=== PATIENT | female | born 1980 | race Caucasian/White ===

== ENCOUNTER 2022-08-13 13:15 | Emergency (ER) | payer OTHER, SELFPAY ==
[2022-08-13 13:20] VITALS: BP 117/95; PULSE 103; RESP 18; TEMP 36.2; O2SAT 95
--- NOTE | 2022-08-13 13:52 | ED.PSYCH ---
HPI - Psych General Chief Complaint: Psychiatric Symptoms Stated Complaint: hallucinations/anxiety Time Seen by Provider: 08/13/22 13:25 History of Present Illness HPI Narrative: Pt presents to the ED with her mother because she has been hearing voices and is paranoid thinking someone is trying to get her. Pt states the voices are not telling her to harm herself or anyone else. Pt says she's been hearing the voices for 4 days. Mother states she went to get her from her place in [place] to get her home where she would feel safer. Pt forgot her ambien and can't get it in [place] because it was sent to pharm in [place]. Pt has been on zyprexa in the past and both she and mother are comfortable with her going home with RX for zyprexa 5 mg and ambien. They will return if her condition changes. Related Data Home Medications Medication Instructions Recorded Confirmed alprazolam 2 mg tablet 2 mg PO TID PRN Anxiety 08/13/22 08/13/22 venlafaxine 150 mg 300 mg PO DAILY 08/13/22 08/13/22 capsule,extended release 24 hr zolpidem 5 mg tablet 10 mg PO HS PRN Insomnia 08/13/22 08/13/22 Allergies Allergy/AdvReac Type Severity Reaction Status Date / Time No Known Allergies Allergy Verified 08/13/22 13:39 Review of Systems Review of Systems: All systems reviewed & are unremarkable except as noted in HPI and below Psychiatric: Psychiatric: Reports as per HPI, Reports anxiety, Denies homicidal ideation and Denies suicidal ideation PMFSH Social History Social History Substance use type: does not use Exam Const: General: healthy appearing Nutritional Appearance: well nourished Orientation/consciousness: patient oriented x3 Limitations: no limitations HENMT: Head: normal to inspection Eyes: Conjunctivae: conjunctivae normal EOM: EOMs intact bilaterally Neck: Neck: normal visual inspection, no lymphadenopathy and no meningeal signs Resp: Effort & Inspection: normal respiratory effort Auscultation: clear to auscultation bilaterally Cardio: Rate: regular rate Rhythm: regular rhythm GI: GI Palp: Yes Soft to palpation Auscultation: normal bowel sounds Skin: General skin exam: normal color Rashes: no rashes Neuro: General: patient oriented x3, moves all extremities, no meningeal signs, no focal motor deficits and CN's II-XI intact bilaterally Cranial nerves: Yes Nystagmus not present Speech: normal speech Extrem: General: normal to inspection, no clubbing, cyanosis or edema and no pedal edema Psych: Affect: normal affect Attitude: cooperative Other: pt understands the voices are not real Course Vital Signs Vital signs: Vital Signs Temperature 97.1 F L 08/13/22 13:20 Pulse Rate 103 H 08/13/22 13:20 Respiratory Rate 18 08/13/22 13:20 Blood Pressure 117/95 H 08/13/22 13:20 Pulse Oximetry 95 08/13/22 13:20 Oxygen Delivery Room Air 08/13/22 13:20 Temperature 97.1 F L 08/13/22 13:20 Pulse Rate 103 H 08/13/22 13:20 Respiratory Rate 18 08/13/22 13:20 Blood Pressure 117/95 H 08/13/22 13:20 Pulse Oximetry 95 08/13/22 13:20 Oxygen Delivery Room Air 08/13/22 13:20 Discharge Plan Discharge Clinical Impression: Psychosis Patient Disposition: Home, Self-Care Condition: Stable Instructions: Antibiotic Form, Psychotic Disorder (ED) Additional Instructions: return if any thoughts of self harm or harming others Prescriptions: New zolpidem 5 mg tablet 5 mg PO HS PRN (Reason: insomnia) Qty: 20 0RF olanzapine [Zyprexa] 5 mg tablet 5 mg PO HS Qty: 20 0RF No Action venlafaxine 150 mg Capsule,Extended Release 24hr 300 mg PO DAILY zolpidem 5 mg Tablet 10 mg PO HS PRN (Reason: Insomnia) alprazolam 2 mg Tablet 2 mg PO TID PRN (Reason: Anxiety) Follow-up/Referrals: UNKNOWN,DOCTOR [Primary Care Provider] -
== END 2022-08-13 14:10 | disposition home or self-care (01) ==
LOC: CHSED 14:14
PROVIDERS: Emergency Provider Emergency Medicine
DX: F29 Unspecified psychosis not due to a substance or known physiological condition (principal)
CPT/HCPCS: 99283

== ENCOUNTER 2023-06-16 15:59 | Emergency (ER) | payer OTHER, SELFPAY ==
[2023-06-16 16:12] VITALS: BP 123/84; PULSE 99; RESP 18; TEMP 36.3; O2SAT 100
--- NOTE | 2023-06-16 16:30 | ED.GENADULT ---
HPI - General Adult General Chief complaint: Psychiatric Symptoms Stated complaint: evaluation Time Seen by Provider: 06/16/23 16:14 History of Present Illness HPI narrative: 43-year-old female presenting for mental health concerns. Patient states she has been hearing voices in her apartment. she states these voices are telling her that they were going to kill her. She denies any thoughts of harming herself or others but states she has tried to harm herself in the past. Mom at bedside states she is having a psychotic breakdown and then she was referred to the emergency department by her psychiatrist. Patient denies any recent illnesses or trauma. He also denies any ingestion of any alcohol or illicit drugs. Related Data Home Medications Medication Instructions Recorded Confirmed alprazolam 2 mg tablet 2 mg PO TID PRN Anxiety 08/13/22 08/13/22 venlafaxine 150 mg 300 mg PO DAILY 08/13/22 08/13/22 capsule,extended release 24 hr zolpidem 5 mg tablet 10 mg PO HS PRN Insomnia 08/13/22 08/13/22 Allergies Allergy/AdvReac Type Severity Reaction Status Date / Time No Known Allergies Allergy Verified 08/13/22 13:39 [facility] Social History Social History Substance use type: does not use Exam Narrative: Patient alert and oriented. She is neurologically intact. She does appear to be anxious and tearful at times. She has fleeting thoughts and her conversation is in multiple directions. All of the systems otherwise unremarkable. Course Vital Signs Vital signs: Vital Signs Temperature 36.3 C L 06/16/23 16:12 Pulse Rate 99 06/16/23 16:12 Respiratory Rate 18 06/16/23 16:12 Blood Pressure 123/84 06/16/23 16:12 Pulse Oximetry 100 06/16/23 16:12 Oxygen Delivery Room Air 06/16/23 16:12 Temperature 36.6 C 06/16/23 22:25 Pulse Rate 84 06/16/23 22:25 Respiratory Rate 18 06/16/23 22:25 Blood Pressure 115/74 06/16/23 22:25 Pulse Oximetry 99 06/16/23 22:25 Oxygen Delivery Room Air 06/16/23 22:25 Medical Decision Making MDM Narrative Medical decision making narrative: Patient is cleared from a medical standpoint for a mental health evaluation, placement, and transport. She does appear to have urinary tract infection which we will start treatment on. patient was evaluated by mental health counselor. Patient given a safety contract and has a follow-up appointment scheduled with the mental health counselor resources tomorrow morning. Patient is comfortable with this plan. She is to be released into the care of her mom who is at bedside. I believe this is an appropriate plan for this patient. She never endorsed having suicidal or homicidal ideations. Vital Signs Vital Signs: Vital Signs Temperature 36.3 C L 06/16/23 16:12 Pulse Rate 99 06/16/23 16:12 Respiratory Rate 18 06/16/23 16:12 Blood Pressure 123/84 06/16/23 16:12 Pulse Oximetry 100 06/16/23 16:12 Oxygen Delivery Room Air 06/16/23 16:12 Temperature 36.6 C 06/16/23 22:25 Pulse Rate 84 06/16/23 22:25 Respiratory Rate 18 06/16/23 22:25 Blood Pressure 115/74 06/16/23 22:25 Pulse Oximetry 99 06/16/23 22:25 Oxygen Delivery Room Air 06/16/23 22:25 Lab Data Lab results reviewed: Yes I reviewed the patient's lab results. 06/16/23 16:45 06/16/23 16:45 Labs: Lab Results 06/16/23 06/16/23 Range/Units 16:29 16:45 WBC 6.9 (4.8-10.8) K/mm3 RBC 4.79 (4.20-5.40) M/mm3 Hgb 13.9 (12.0-15.0) g/dL Hct 46.0 (35.0-49.0) % MCV 96.0 (78.0-102.0) fL MCH 29.0 (27.0-31.0) pg MCHC 30.2 L (32.0-36.0) g/dL RDW 13.1 (11.6-14.4) % Plt Count 279 (150-420) K/mm3 MPV 10.3 (9.2-11.8) fl Immature Gran % (Auto) 0.1 H (0.0-0.0) % Neut % (Auto) 63.8 (50.0-70.0) % Lymph % (Auto) 25.1 (18.0-42.0) % [place] % (Auto) 8.1 (2.0-11.0) % Eos % (Auto) 1.9 (1.0-6.0) % Baso % (Auto) 1.0 (0.0-1.0) % Lymp
[2023-06-16 16:53] LABS: Basophils Absolute Auto 0.07 K/mm3 (0.00-0.10); Eosinophils Absolute Auto 0.13 K/mm3 (0.02-0.50); Eosinophils Percent Auto 1.9 % (1.0-6.0); Hemoglobin 13.9 g/dL (12.0-15.0); Immature Granulocyte Absolute 0.01 K/mm3 (0.00-0.00); Immature Granulocyte Percent A 0.1 % (0.0-0.0); Lymphocytes Absolute Auto 1.73 K/mm3 (1.10-4.50); Lymphocytes Percent Auto 25.1 % (18.0-42.0); Mean Corpuscular HGB Conc 30.2 g/dL (32.0-36.0); Mean Platelet Volume 10.3 fl (9.2-11.8); Monocytes Absolute Auto 0.56 K/mm3 (0.10-0.90); Monocytes Percent Auto 8.1 % (2.0-11.0); Neutrophils Absolute Auto 4.4 K/mm3 (1.7-7.2); Neutrophils Percent Auto 63.8 % (50.0-70.0); Platelet Count Result 279 K/mm3 (150-420); Red Blood Count 4.79 M/mm3 (4.20-5.40); Red Cell Distribution Width 13.1 % (11.6-14.4); White Blood Count 6.9 K/mm3 (4.8-10.8)
[2023-06-16 16:57] LABS: Appearance Urine Cloudy (Clear); Bilirubin Urine Negative (Negative); Blood Urine 2+ (Negative); Color Urine Light Yellow (Yellow); Glucose Urine UA Negative (Negative); Ketones Urine Trace (Negative); Leukocyte Esterase Ur 1+ LEU/UL (Negative); Nitrate Urine Negative (Negative); Protein Urine Negative (Negative); Specific Grav Ur <= 1.005 (1.010-1.020); Urobilinogen Urine 0.2 mg/dL (0.2-1.0)
[2023-06-16 17:02] LABS: Add Urine Microscopic? YES; Bacteria Urine 2+ /hpf; Squamous Epithelial Cell Urine Moderate /hpf (Few)
[2023-06-16 17:06] LABS: Amphetamine Screen Urine Negative (Negative); Barbiturate Screen Urine Negative (Negative); Benzodiazepines Screen Urine Positive (Negative); Cannabinoid Screen Urine Negative (Negative); Cocaine Screen Urine Negative (Negative); Methadone Screen Urine Negative (Negative); Opiate Screen Urine Negative (Negative); Phencyclidine Screen Urine Negative (Negative)
[2023-06-16 17:08] LABS: Alanine Aminotransferase 24 U/L (14-59); Albumin Level 3.9 g/dL (3.4-5.0); Alkaline Phosphatase 105 U/L (46-116); Anion Gap 14 mmol/L (8-16); Aspartate Amino Transferase 25 U/L (15-37); Bilirubin,Total 0.7 mg/dL (0.00-1.00); Blood Urea Nitrogen 5 mg/dL (7-18); Calcium 9.8 mg/dL (8.5-10.1); Carbon Dioxide 19 mmol/L (21-32); Chloride 105 mmol/L (98-108); Glucose 96 mg/dL (70-99); Osmolality Calculated 283 mOsm/kg (285-295); Potassium 4.7 mmol/L (3.5-5.1); Sodium 138 mmol/L (136-145); Total Protein 7.5 g/dL (6.4-8.2)
[2023-06-16 17:09] LABS: Acetaminophen 0 ug/mL (10-30); Estimated CRCL calculation 112 ml/min; Estimated Glomerular Filt Rate > 60; Ethanol < 3 mg/dL (0-6); Salicylate < 0.3 mg/dL (2.8-20.0)
--- NOTE | 2023-06-16 18:17 | PC.NURSE ---
PT CHANGED INTO SCRUBS AND BELONGINGS PLACED IN MED ROOM MOTHER LEFT TO GO LET HER DOG OUT PT GIVEN TURKEY SANDWICH AND APPLE JUICE
[2023-06-16 18:39] LABS: Thyroid Stimulating Hormone 2.72 uIU/mL (0.36-3.74)
[2023-06-16] MEDS: CEPHALEXIN 500 MG CAPSULE PO (19:24)
--- NOTE | 2023-06-16 19:31 | PC.NURSE ---
Pt sitting in room c mom at bedside. Pt is A&O x3 and answers questions appropriately. [facility] counselors here for pt eval.
--- NOTE | 2023-06-16 22:00 | PC.NURSE ---
Pt signed safety contract c [facility] and POC to f/u in clinic tomorrow. Pt will go home c her mother jean marie. D/C instructions home given.
[2023-06-16 22:25] VITALS: BP 115/74; PULSE 84; RESP 18; TEMP 36.6; O2SAT 99
--- NOTE | 2023-06-18 13:55 | PC.NURSE ---
FINAL URINE CULTURE RESULTS: MIXED GENITAL AB ISOLATED. NO ACTION NEEDED.
== END 2023-06-16 22:30 | disposition home or self-care (01) ==
PROVIDERS: Emergency Provider Emergency Medicine
DX: N30.90 Cystitis, unspecified without hematuria (principal); R44.0 Auditory hallucinations; Z79.899 Other long term (current) drug therapy
CPT/HCPCS: 36415; 80053; 80307; 81001; 84443; 85025; 87086; 87088; 99284; A9270

== ENCOUNTER 2023-08-04 14:44 | Outpatient (CLI) | payer OTHER, SELFPAY ==
[2023-08-04 15:07] LABS: Basophils Absolute Auto 0.04 K/mm3 (0.00-0.10); Basophils Percent Auto 0.6 % (0.0-1.0); Eosinophils Absolute Auto 0.12 K/mm3 (0.02-0.50); Eosinophils Percent Auto 1.7 % (1.0-6.0); Hematocrit 44.6 % (35.0-49.0); Hemoglobin 14.4 g/dL (12.0-15.0); Immature Granulocyte Absolute 0.03 K/mm3 (0.00-0.00); Immature Granulocyte Percent A 0.4 % (0.0-0.0); Lymphocytes Absolute Auto 2.06 K/mm3 (1.10-4.50); Lymphocytes Percent Auto 29.2 % (18.0-42.0); Mean Corpuscular HGB Conc 32.3 g/dL (32.0-36.0); Mean Corpuscular Hemoglobin 29.1 pg (27.0-31.0); Mean Corpuscular Volume 90.1 fL (78.0-102.0); Mean Platelet Volume 9.7 fl (9.2-11.8); Monocytes Percent Auto 7.1 % (2.0-11.0); Neutrophils Absolute Auto 4.3 K/mm3 (1.7-7.2); Platelet Count Result 298 K/mm3 (150-420); Red Blood Count 4.95 M/mm3 (4.20-5.40); Red Cell Distribution Width 13.6 % (11.6-14.4); White Blood Count 7.1 K/mm3 (4.8-10.8)
[2023-08-04 15:15] LABS: Amphetamine Screen Urine Negative (Negative); Barbiturate Screen Urine Negative (Negative); Benzodiazepines Screen Urine Positive (Negative); Cannabinoid Screen Urine Positive (Negative); Cocaine Screen Urine Negative (Negative); Methadone Screen Urine Negative (Negative); Opiate Screen Urine Negative (Negative); Phencyclidine Screen Urine Negative (Negative)
[2023-08-04 15:22] LABS: Hemoglobin A1C < 4.7 % (<5.7)
[2023-08-04 15:56] LABS: Alanine Aminotransferase 43 U/L (14-59); Albumin Level 3.9 g/dL (3.4-5.0); Alkaline Phosphatase 95 U/L (46-116); Anion Gap 5 mmol/L (8-16); Aspartate Amino Transferase 16 U/L (15-37); Bilirubin,Total 0.6 mg/dL (0.00-1.00); Blood Urea Nitrogen 6 mg/dL (7-18); Calcium 9.6 mg/dL (8.5-10.1); Carbon Dioxide 33 mmol/L (21-32); Chloride 101 mmol/L (98-108); Cholesterol 151 mg/dL (0-200); Estimated Glomerular Filt Rate > 60; Glucose 79 mg/dL (70-99); HDL Direct 50 mg/dL (40-60); LDL Cholesterol Calculated 90 mg/dL (<130); Osmolality Calculated 284 mOsm/kg (285-295); Potassium 4.2 mmol/L (3.5-5.1); Sodium 139 mmol/L (136-145); Triglycerides 56 mg/dL (0-150)
== END 2023-08-04 14:45 | disposition home or self-care (01) ==
LOC: CHSLAB 14:51
PROVIDERS: PCP Physician Assistant
DX: Z79.899 Other long term (current) drug therapy (principal)
CPT/HCPCS: 36415; 80053; 80061; 80307; 83036; 84443; 85025

== ENCOUNTER 2023-09-20 22:19 | Emergency (ER) | payer OTHER, SELFPAY ==
[2023-09-20 23:23] LABS: Basophils Percent Auto 0.5 % (0.2-1.2); Eosinophils Absolute Auto 0.3 K/mm3 (0-0.3); Eosinophils Percent Auto 3.9 % (0-4.4); Hematocrit 40.2 % (37.0-47.0); Hemoglobin 12.5 g/dL (12.0-15.0); Immature Granulocyte Absolute 0.03 K/mm3 (0.00-0.031); Immature Granulocyte Percent A 0.3 % (0-0.5); Lymphocytes Absolute Auto 1.91 K/mm3 (0.9-3.2); Lymphocytes Percent Auto 21.9 % (18.3-44.2); Mean Corpuscular HGB Conc 31.1 g/dl (32-36); Mean Corpuscular Volume 90.1 fl (80-100); Mean Platelet Volume 9.8 fl (7.4-10.4); Monocytes Absolute Auto 0.6 K/mm3 (0.1-0.6); Monocytes Percent Auto 6.5 % (2.6-8.5); Neutrophils Absolute Auto 5.8 K/mm3 (1.3-6.7); Neutrophils Percent Auto 66.9 % (45.5-73.1); Platelet Count Result 310 k/mm3 (150-375); Red Blood Count 4.46 M/mm3 (4.2-5.4); Red Cell Distribution Width 12.8 % (11.5-14.5); White Blood Count 8.7 K/mm3 (4.5-10.0)
--- NOTE | 2023-09-20 23:29 | ED.GENADULT ---
HPI - General Adult General Chief complaint: Psychiatric Symptoms <Jeremías Escalera PA-C - Last Filed: 09/21/23 03:26> Stated complaint: Anxiety <Jeremías Escalera PA-C - Last Filed: 09/21/23 03:26> Time Seen by Provider: 09/20/23 22:46 <Jeremías Escalera PA-C - Last Filed: 09/21/23 03:26> Source: patient <Jeremías Escalera PA-C - Last Filed: 09/21/23 03:26> Mode of arrival: ambulatory <Jeremías Escalera PA-C - Last Filed: 09/21/23 03:26> Limitations: no limitations <Jeremías Escalera PA-C - Last Filed: 09/21/23 03:26> History of Present Illness HPI narrative: This is a 43-year-old female with PMH of schizophrenia, anxiety who presents to the ED with chief complaint of suicidal ideation and anxiety. Reports that she has had passing suicidal thoughts but does not have any plan. Reports she has had suicidal ideations in the past been admitted before. Reports 1 attempt to the past. Denies homicidal ideation. States she has been unable to sleep been very restless. She reports that she stop taking her Zyprexa because a weight gain. Reports that she has taken her Ambien and anxiety medications. Denies any other substance use. She has medical complaint of dental pain and intermittent chest pains that have fully resolved. Denies hallucinations. States that she has follow-up with her psychiatrist in 2 days. <Jeremías Escalera PA-C - Last Filed: 09/21/23 03:26> Related Data Home medications: Home Medications Medication Instructions Recorded Confirmed alprazolam 2 mg tablet 2 mg PO TID PRN Anxiety 08/13/22 08/13/22 venlafaxine 150 mg 300 mg PO DAILY 08/13/22 08/13/22 capsule,extended release 24 hr zolpidem 5 mg tablet 10 mg PO HS PRN Insomnia 08/13/22 09/21/23 benztropine 2 mg tablet 1 mg PO BID 09/21/23 09/21/23 clonazepam 2 mg tablet 2 mg PO TID PRN Anxiety 09/21/23 09/21/23 gabapentin 400 mg capsule 400 mg PO DAILY 09/21/23 09/21/23 haloperidol 5 mg tablet 5 mg PO BID 09/21/23 09/21/23 lurasidone 60 mg tablet 60 mg PO HS 09/21/23 09/21/23 venlafaxine 75 mg tablet 75 mg PO DAILY 09/21/23 09/21/23 <Jeremías Escalera PA-C - Last Filed: 09/21/23 03:26> Allergies/adverse reactions: Allergies Allergy/AdvReac Type Severity Reaction Status Date / Time No Known Allergies Allergy Verified 09/20/23 22:36 <KRISSY Alex Last Filed: 09/21/23 03:26> Review of Systems Review of Systems: All systems as dictated in HPI <KRISSY Alex Last Filed: 09/21/23 03:26> PMFSH Social History Social History: Social History Substance use type: unknown <KRISSY Alex Last Filed: 09/21/23 03:26> Exam Narrative: GENERAL: Well-appearing, well-nourished, and in no acute distress. HEAD: Normocephalic, atraumatic. EYES: PERRLA and EOMI. ENT: Nares clear, no rhinorrhea or epistaxis. Mucous membranes moist. Oropharynx without tonsillar hypertrophy exudate or other lesions. NECK: Supple. No adenopathy or masses. CHEST: No respiratory distress. Clear to auscultation. No wheezes rales or rhonchi HEART: Regular rate and rhythm. No murmur heard. Normal peripheral pulses. ABDOMEN: Soft, nontender, nondistended, normal active bowel sounds. MSK: Normal range of motion. No edema. SKIN: Warm, dry, no rash. NEURO: Alert and oriented x3. No focal deficits. PSYCH: Positive SI, Negative for plan. Negative HI and negative HI plan. Response to questions appropriately. Somewhat tangential speech at times but easily redirectable. Appears anxious <KRISSY Alex Last Filed: 09/21/23 03:26> Course Reevaluation(s) Reevaluation #1: At time of sign-out by the nighttime physician the patient was going to be re-evaluated by a crisis. Patient was re-evaluated by crisis and crisis and patient were comfortable with the plan for discharge to home. <Sandeep Castillo MD - Last Filed: 09/21/23 17:27> Vital Signs Vital signs: Vital Signs Temperature 97.2 F L
--- NOTE | 2023-09-20 23:30 | ECG_ITS ---
Measurements Intervals [place] Rate: 95 P: 9 GA: 141 QRS: 39 QRSD: 80 T: 28 QT: 330 QTc: 417 Interpretive Statements SINUS RHYTHM NO PREVIOUS ECG AVAILABLE FOR COMPARISON Electronically Signed On 09-21-2023 14:49:27 GROUP EXERCISE INSTRUCTOR by Bam Junior M.D.
[2023-09-20 23:32] LABS: Acetaminophen < 10 ug/mL (10-30); Salicylate < 1.0 mg/dL (2-20)
[2023-09-20 23:33] LABS: Ethanol < 10 mg/dL (<10)
[2023-09-20 23:43] LABS: Alanine Aminotransferase 33 U/L (6-35); Albumin Level 3.9 g/dL (3.5-5.1); Alkaline Phosphatase 79 U/L (38-126); Amphetamine Screen Urine Negative (Negative); Anion Gap 10 mmol/L (8-16); Aspartate Amino Transferase 35 U/L (14-36); Barbiturate Screen Urine Negative (Negative); Benzodiazepines Screen Urine Positive (Negative); Bilirubin,Total 0.3 mg/dL (0.2-1.3); Blood Urea Nitrogen 8 mg/dL (7-17); Calcium 9.5 mg/dL (8.4-10.2); Cannabinoid Screen Urine Negative (Negative); Carbon Dioxide 22 mmol/L (22-30); Chloride 108 mmol/L (98-107); Cocaine Screen Urine Negative (Negative); Estimated Glomerular Filt Rate > 60; Glucose 126 mg/dL (65-110); Methadone Screen Urine Negative (Negative); Opiate Screen Urine Negative (Negative); Phencyclidine Screen Urine Negative (Negative); Potassium 4.1 mmol/L (3.4-5.0); Sodium 140 mmol/L (137-145)
[2023-09-20 23:58] LABS: SARS-CoV-2 RNA PCR Negative (Negative)
[2023-09-21 00:28] LABS: Bacteria Urine None Seen /hpf; Non Pathogenic Casts 0-2; RBC Urine 0-2 /hpf (0-2); Squamous Epithelial Cell Urine Many /hpf (Few); WBC Urine 0-5 /hpf
[2023-09-21 00:36] LABS: Appearance Urine Clear (Clear); Color Urine Yellow (Yellow); Specific Grav Ur 1.015 (1.001-1.035); pH Urine 7.5 (5.0-9.0)
[2023-09-21 00:37] LABS: Bilirubin Urine Negative (Negative); Blood Urine Negative (Negative); Glucose Urine UA Negative (Negative); Ketones Urine Negative (Negative); Nitrate Urine Negative (Negative); Protein Urine Negative (Negative)
[2023-09-21 00:38] LABS: Add Urine Microscopic? NO; Leukocyte Esterase Ur Negative LEU/UL (Negative); Urobilinogen Urine 0.2 mg/dL (<2.0)
[2023-09-21 01:02] LABS: SPREG INTERNAL CONTROL Positive; Serum Qual hCG Negative
[2023-09-21] MEDS: ZOLPIDEM TARTRATE (*CRX) 5 MG TABLET 10 MG PO (01:30)
[2023-09-21] MEDS: ALPRAZolam (*CRX) 0.5 MG TABLET 2 MG PO (01:30)
--- NOTE | 2023-09-21 07:02 | PC.NURSE ---
Crisis called for re-evaluation of patient and state they will send someone out soon. [employer] wanted clarification as to why the patient was being re-evaluated. Informed that was a decision made by their workers who stated they wanted more information from the mother of patient who they could not get ahold of throughout the night. They were not comfortable discharging her without a ride home, so they decided to come back in the morning to safety plan the patient.
[2023-09-21 07:46] VITALS: BP 123/84; PULSE 96; RESP 18; TEMP 36.2; O2SAT 98
[2023-09-21] MEDS: clonazePAM (*CRX) 0.5 MG TABLET 2 MG PO (07:55)
[2023-09-21] MEDS: VENLAFAXINE HCL 75 MG TABLET PO (08:45)
[2023-09-21] MEDS: GABAPENTIN 400 MG CAPSULE PO (08:45)
[2023-09-21] MEDS: HALOPERIDOL 5 MG TABLET PO (08:45)
[2023-09-21] MEDS: BENZTROPINE MESYLATE 1 MG TABLET 2 MG PO (08:46)
== END 2023-09-21 09:05 | disposition home or self-care (01) ==
PROVIDERS: Physician Assistant; Emergency Provider Emergency Medicine; PCP Physician Assistant
DX: F41.9 Anxiety disorder, unspecified (principal); R45.851 Suicidal ideations; Z79.899 Other long term (current) drug therapy; Z11.52 Encounter for screening for COVID-19
CPT/HCPCS: 36415; 80053; 80307; 81003; 84443; 84703; 85025; 87635; 93005; 99284; A9270

== ENCOUNTER 2024-04-11 12:08 | Emergency (ER) | payer MEDICAID, SELFPAY ==
[2024-04-11 12:08] VITALS: BP 115/76; PULSE 64; RESP 16; TEMP 36.4; O2SAT 99
--- NOTE | 2024-04-11 12:17 | ED.HA ---
HPI - Headache General Chief Complaint: Headache Stated Complaint: migraine Time Seen by Provider: 04/11/24 12:12 Source: patient Mode of arrival: ambulatory Limitations: no limitations History of Present Illness HPI Narrative: 43 year old female presents to the Emergency Department complaining of migraine headache for the past 16 days. Patient has migraine medications, but ran out of Imitrex today. She would like migraine cocktail. States pain to frontal and maxillary region. MD elicited complaint: headache Pertinent past history: migraines Onset (ago): day(s) (16) Location: facial Severity: moderate Quality & Timing: similar to previous headaches Exacerbating factors: none Relieving factors: prescription medication Associated symptoms: none Treatments prior to arrival: migraine medication Related Data Home Medications Medication Instructions Recorded Confirmed alprazolam 2 mg tablet 2 mg PO TID PRN Anxiety 08/13/22 08/13/22 venlafaxine 150 mg 300 mg PO DAILY 08/13/22 08/13/22 capsule,extended release 24 hr zolpidem 5 mg tablet 10 mg PO HS PRN Insomnia 08/13/22 09/21/23 benztropine 2 mg tablet 1 mg PO BID 09/21/23 09/21/23 clonazepam 2 mg tablet 2 mg PO TID PRN Anxiety 09/21/23 09/21/23 gabapentin 400 mg capsule 400 mg PO DAILY 09/21/23 09/21/23 haloperidol 5 mg tablet 5 mg PO BID 09/21/23 09/21/23 lurasidone 60 mg tablet 60 mg PO HS 09/21/23 09/21/23 venlafaxine 75 mg tablet 75 mg PO DAILY 09/21/23 09/21/23 Allergies Allergy/AdvReac Type Severity Reaction Status Date / Time No Known Allergies Allergy Verified 09/20/23 22:36 Review of Systems Review of Systems: All systems reviewed & are unremarkable except as noted in HPI and below Constitutional: Constitutional: Reports as per HPI, Denies chills and Denies fever(s) Eyes: Eyes: Reports as per HPI ENT: Reports system reviewed and no additional complaints, except as documented Cardiovascular: Cardiovascular: Reports as per HPI Respiratory: Respiratory: Reports as per HPI Gastrointestinal: Gastrointestinal: Reports as per HPI Genitourinary: Genitourinary: Reports no additional female genitourinary complaints Musculoskeletal: Musculoskeletal: Reports no additional musculoskeletal complaints Integumentary/Breasts: Skin/Breast: Reports system reviewed and no additional complaints, except as docu Neurologic: Reports system reviewed and no additional complaints, except as documented and Reports headache(s) PMFSH Social History Social History Substance use type: unknown Exam Const: General: healthy appearing and no acute distress Nutritional Appearance: well nourished Orientation/consciousness: patient oriented x3 Limitations: no limitations HENMT: Head: normal to inspection Ears: external ears normal Face/Nose/Sinus: Normal external nose present Face and sinus: sinus tenderness Mouth: Yes Normal oral and palatal mucosa present Teeth and gingiva: dentition normal Eyes: Conjunctivae: conjunctivae normal Pupils: Equal, round and reactive pupils present EOM: EOMs intact bilaterally Direct Ophthalmoscopy: no photophobia Neck: Neck: normal visual inspection and no meningeal signs Chest: Chest palpation & inspection: normal inspection of the chest Resp: Effort & Inspection: normal respiratory effort Auscultation: clear to auscultation bilaterally Cardio: Rate: regular rate Rhythm: regular rhythm GI: Inspection: non-distended GI Palp: Yes Soft to palpation and No Tenderness to palpation present (GI) Skin: General skin exam: normal color Rashes: no rashes Neuro: General: patient oriented x3, moves all extremities, no meningeal signs, no focal motor deficits and CN's II-XI intact bilaterally Cranial nerves: Yes Nystagmus not present Speech: normal speech Gait exam (Neuro): Normal gait present Extrem: General: normal to inspection Psych: Mental Status: mental status grossly
[2024-04-11 12:30] VITALS: BP 108/68; PULSE 65; RESP 17; O2SAT 99
--- NOTE | 2024-04-11 12:30 | PC.NURSE ---
Patient verified that she can get a ride home following medication administration.
[2024-04-11] MEDS: diphenhydrAMINE HCl INJ 50 MG/ML VIAL IV PUSH (12:33)
[2024-04-11] MEDS: METOCLOPRAMIDE HCL INJ 10 MG/2 ML VIAL IV PUSH (12:34)
[2024-04-11] MEDS: KETOROLAC 30 MG/ML VIAL (*BKC) IV PUSH (12:36)
[2024-04-11] MEDS: LORazepam INJ (*CRX) 2 MG/ML VIAL 1 MG IV PUSH (12:38)
[2024-04-11 13:00] VITALS: BP 109/75; PULSE 66; RESP 17; O2SAT 98
--- NOTE | 2024-04-11 13:12 | PC.NURSE ---
Patient educated she is ready for discharge, she states she called her mom to come pick her up.
--- NOTE | 2024-04-11 13:22 | PC.NURSE ---
discharge delayed, patient waiting on ride.
[2024-04-11 13:30] VITALS: BP 103/82; PULSE 66; RESP 17; O2SAT 98
[2024-04-11 13:36] VITALS: BP 103/82; PULSE 66; RESP 17; O2SAT 98
--- NOTE | 2024-04-11 13:36 | PC.NURSE ---
Patient's ride has pulled up to [place]. Patient to be discharged.
== END 2024-04-11 13:36 | disposition home or self-care (01) ==
PROVIDERS: Emergency Provider Emergency Medicine; PCP Physician Assistant
DX: G44.009 Cluster headache syndrome, unspecified, not intractable (principal); J32.9 Chronic sinusitis, unspecified
CPT/HCPCS: 96374; 96375; 99284; J1200; J1885; J2060; J2765

== ENCOUNTER 2025-04-10 12:48 | Emergency (ER) | payer MEDICAID, SELFPAY ==
--- OUTSIDE RECORDS SUMMARY | 2025-04-10 12:51 | XMS_ITS | Clinical Summary ---
Author Organization [facility] Address [address] [place] [address] Phone Care Team Providers Care Program Rep Name Role Phone Paloma Li MD Primary Care Provider [phone] Allergies No known active allergies Medications clonazePAM (KlonoPIN) 2 MG TabletIndicati ons:Anxiety,Pa yung Disorder Take 2 mg by mouth 3 times daily. Indications: Feeling Anxious, Panic Disorder Active zolpidem (AMBIEN) 10 MG Tablet Take 10 mg by mouth nightly as needed for Sleep. Active hydrOXYzine (ATARAX) 25 MG Tablet Take 1 Tablet by mouth every 6 hours as needed for Anxiety. 90 Tablet 3 Active venlafaxine (EFFEXOR) 37.5 MG Tablet Take 37.5 mg by mouth daily. Active gabapentin (NEURONTIN) 400 MG Capsule Take 400 mg by mouth daily. Active benztropine (COGENTIN) 2 MG Tablet Take 2 mg by mouth 2 times daily. Active lurasidone (LATUDA) 40 MG TabletIndicati ons:Schizophre ermelinda Take 80 mg by mouth nightly. Indications: Schizophrenia Active Active Problems No known active problems Social History Tobacco Use Types Packs/Day Years Used Date Smoking Tobacco: Never Smokeless Tobacco: Never Tobacco Cessation:Counseling Given: Not Answered Alcohol Use Standard Drinks/Week Comments Never 0 (1 standard drink = 0.6 oz pur e alcohol) Sexually Active Control Partners Comments Yes Comments No Sex and Gender Information Value Date Recorded Sex Assigned at Female 08/31/2023 5:01 AM PATIENT BILLER Legal Sex Female 11:09 PM CDT Gender Identity Female 08/31/2023 5:01 AM PATIENT BILLER Sexual Orientation Not on file Last Filed Vital Signs Vital Sign Reading Time Taken Comments Blood Pressure 100/67 11/26/2023 7:00 AM PATIENT BILLER Pulse 84 11/26/2023 7:15 AM PATIENT BILLER Temperature 36 C (96.8 F) 11/26/2023 6:38 AM PATIENT BILLER Respiratory Rate 16 11/26/2023 8:28 AM PATIENT BILLER Oxygen Saturation 100% 11/26/2023 7:15 AM PATIENT BILLER Inhaled Oxygen Concentration - - Weight 61.2 kg (135 lb) 11/26/2023 6:38 AM PATIENT BILLER Height 172.7 cm (5' 8) 11/26/2023 6:38 AM PATIENT BILLER Body Mass Index 20.53 11/26/2023 6:38 AM PATIENT BILLER Plan of Treatment Health Maintenance Due Date Last Done Comments Hepatitis C Virus (HCV) Screening 1978 Mammogram 1978 TdaP Immunization 1978 Hepatitis B Immunization (1 of 3 - 19+ 3-dose series) 1997 Pap Smear 1999 Cervical Cancer Screening (CCS) 2008 HPV/Cotest 2008 Discussion re Starting/Frequ ency of Mammograms 2018 Cologuard 2023 Colonoscopy 2023 Colorectal Cancer Screening 2023 Immunochemical Fecal Occult Blood 2023 SARS-COV-2 Immunization ( season) 2024 Influenza Immunization (#1) 2025 Respiratory Syncytial Virus (RSV) Immunization (Adult) (1 - 1-dose 75+ series) 2053 Human Papillomavirus (HPV) Immunization Aged Out No longer eligible b ased on patient's age to complete this topic Meningococcal Immunization (ACWY) Aged Out No longer eligible based on patient's age to complete this topic Pneumococcal Immunization Combined Aged Out No longer eligible based on patient's age to complete this topic Rotavirus Immunization Aged Out No lo nger eligible based on patient's age to complete this topic Insurance MEDICAID [employer] Care Teams Program Rep Relationship Specialty Start Date End Date Paloma Li MD [address] [place] [address] PCP - General Internal Medicine 08/18/23
--- OUTSIDE RECORDS SUMMARY | 2025-04-10 12:51 | XMS_ITS | Clinical Summary ---
Author Organization [facility] Address [address] [place] [address] Care Team Providers Care Dialysis Chief Equipment Technician Name Role Phone Unavailable Primary Care Provider Unavailabl e Source Comments [facility],non-owned Affiliates and Associated Physician Practices is amultiple site organization consisting of ambulatory clinics and hospital sitesin [place], [place], [place] and [place]. This disclosure is being madepursuant to the Care Everywhere program and may not contain all information available regarding this patient. Last updated 18.[facility] Allergies No known active allergies Medications * This document contains information received from the source organization and may not represent a complete record from that organization. * Be aware that medications may not be up to date on this document. Alwaysverify current medications with the patient. clonazePAM (KlonoPIN) 1 MG tabletIndicatio ns:Anxiety Take 1 (one) tablet by mouth 3 times daily as needed for Anxiety Reasons: Feeling Anxious 30 tablet 3 Active gabapentin (Neurontin) 400 MG capsuleIndicati ons:Anxiety,Moo d Disorder Take 1 (one) capsule by mouth at bedtime Reasons: Feeling Anxious, Mood Disorder 30 capsule 3 Active DULoxetine (Cymbalta) 60 MG capsuleIndicati ons:Major Depressive Disorder Take 1 (one) capsule by mouth 2 times daily Reasons: Major Depressive Disorder 30 capsule 3 Active ARIPiprazole (Abilify) 5 MG tabletIndicatio ns:Major Depressive Disorder,Manic Phase of Bipolar Mood Disorder Take 1 (one) tablet by mouth at bedtime Reasons: Major Depressive Disorder, Manic Phase of Manic-Depressio n 30 tablet 3 Active zolpidem (Ambien) 10 MG tabletIndicatio ns:Insomnia Take 1 (one) tablet by mouth nightly as needed for Insomnia Reasons: Trouble Sleeping 30 tablet 3 Active melatonin 5 MG tabletIndicatio ns:Insomnia Take 1 (one) tablet by mouth at bedtime Reasons: Trouble Sleeping 30 tablet 3 Active ondansetron, disintegrating, (Zofran ODT) 4 MG tablet Take 1 (one) tablet by mouth every 6 hours as needed for Nausea/Vomiting Allow tablet to dissolve on the tongue 12 tablet 5 Active Active Problems Problem Noted Date Diagnosed Date Bipolar affective disorder, current episode manic with psychotic symptoms 03/13/2023 PTSD (post-traumatic stress disorder) 03/13/2023 Generalized anxiety disorder 03/13/2023 Benzodiazepine abuse 03/13/2023 Bipolar I disorder with clinton 03/12/2023 Encounters Date Type Department Care Team Description 02/12/2025 11:30 AM CDT - 02/12/2025 2:34 PM CDT Emergency [facility] EMERGENCY DEPARTMENT [address] [place] [address] Maximo Harrison MD Kraemer, Carl M, MD Nausea without vomiting (Primary Dx); Abdominal pain, unspecified abdominal location; History of psychiatric care Discharge Disposition: Home or Self Care 02/12/2025 Travel from Last 3 Months Family History Medical History Relation Name Comments CVA Maternal Grandfather Relation Name Status Comments Maternal Grandfather Social History Tobacco Use Types Packs/Day Years Used Date Smoking Tobacco: Never Smokeless Tobacco: Never Tobacco Cessation:Counseling Given: Not Answered Alcohol Use Standard Drinks/Week Comments Not Currently 0 (1 standard drink = 0.6 oz pur e alcohol) 1-2 a month AUDIT-C Answer Date Recorded Q1: How often do you have a drink containing alc ohol? Monthly or less 03/12/2023 Q2: How many drinks containi ng alcohol do you have on a typical day when you are drinking? 1 or 2 03/12/2023 Q3: How often do you have si x or more drinks on one occasion? Never 03/12/2023 Overall Financial Resource Strain (CARDIA) Answe r Date Recorded How hard is it for you to pa y for the very basics like food, housing, medical care, and heating? Not hard at all 03/12/2023 [facility] - Occupational Stress Questionnaire Answer Date Recorded Do you feel stress - tense, restless, nervous, or anxious, or unable to sleep at night because your mind is troubled all the time - these days? To some extent 03/12/2023 Hunger Vital Sign Answer Date Recorded Within the past 12 months, y ou worried that your food would run out before you got the money to buy more. Never true 03/12/20 23 Within the past 12 months, t he food you bought just didn't last and you didn't have money to get more. Never true 03/12/2023 PRAPARE - Transportation Answer Date Re corded In the past 12 months, has l ack of transportation kept you from medical appointments or from getting medications? No 02/21 In the past 12 months, has l ack of transportation kept you from meetings, work, or from getting things needed for daily living? No 03/12/2023 Housing Stability Vital Sign Answer Aleksey e Recorded In the last 12 months, was t here a time when you were not able to pay the mortgage or rent on time? No 03/12/2023 In the last 12 months, how many places have you lived? 2 03/12/2023 In the last 12 months, was t here a time when you did not have a steady place to sleep or slept in a group home (including now)? No 03/12/2023 Comments Unknown Sex and Gender Information Value Date Recorded Sex Assigned at Not on file Legal Sex Female 5:27 AM LITIGATION SUPPORT ANALYST Gender Identity Not on file Sexual Orientation Not on file Last Filed Vital Signs Vital Sign Reading Time Taken Comments Blood Pressure 102/88 02/12/2025 11:30 AM CDT Pulse 95 02/12/2025 11:30 AM CDT Temperature 36.2 C (97.1 F) 02/12/2025 11:30 AM CDT Respiratory Rate 16 02/12/2025 11:30 AM CDT Oxygen Saturation 96% 02/12/2025 11:30 AM CDT Inhaled Oxygen Concentration - - Weight 83.9 kg (185 lb) 02/12/2025 11:30 AM CDT Height 172.7 cm (5' 8) 02/12/2025 11:30 AM CDT Body Mass Index 28.13 02/12/2025 11:30 AM CDT Plan of Treatment Health Maintenance Due Date Last Done Comments COLOGUARD (AGES 45-75) - COL ON CA SCREENING 1978 COLON MONITORING 1978 COLONOSCOPY - COLON CA SCREENING 1978 CT COLONOGRAPHY - COLON CA SCREENING 1978 Colorectal Cancer Screening 1978 FIT - COLON CA SCREENING 1978 FLEX SIG - COLON CA SCREENING 1978 LIPID TESTING 1978 MAMMOGRAM 1978 DTAP/TDAP/TD VACCINES (1 - Tdap) 1997 HEPATITIS B VACCINE (1 of 3 - 19+ 3-dose series) 1997 PAP SMEAR 1999 COVID-19 VACCINE ( - 2023-2 5 season) 2024 INFLUENZA VACCINE (#1) 2025 ZOSTER VACCINE (1 of 2) 2028 HEPATITIS C SCREENING Completed 08/07/2021 HIV SCREENING Completed 03/12/2023 HIB VACCINE Aged Out No longer eligi ble based on patient's age to complete this topic HPV VACCINE Aged Out No longer eligi ble based on patient's age to complete this topic MENINGOCOCCAL (Group B) VACC INE SHARED DECISION-MAKING Aged Out No longer eligibl e based on patient's age to complete this topic MENINGOCOCCAL GROUPS A/C/Y/W VACCINE Aged Out No longer eligible b ased on patient's age to complete this topic PNEUMOCOCCAL VACCINE Aged Out No long er eligible based on patient's age to complete this topic Procedures Procedure Name Priority Date/Time Associated Diagnosis Comments URINALYSIS REFLEX MICROSCOPIC REFLEX CULTURE STAT 02/12/2025 1:58 PM CDT HCG BETA BLOOD QUANTITATIVE STAT 02/12/2025 1:02 PM CDT COMPREHENSIVE METABOLIC PANEL STAT 02/12/2025 1:02 PM CDT CBC W AUTO DIFFERENTIAL STAT 02/12/2025 1:02 PM CDT HIV-1 HIV-2 ANTIBODY + HIV P24 AG PANEL STAT 03/12/2023 8:49 AM CDT from Last 3 Months or Most Recently Relevant to Health Maintenance Results * (ABNORMAL) URINALYSIS REFLEX MICROSCOPIC REFLEX CULTURE (02/12/2025 1:58 PM CDT) Color UA Yellow Yellow, Straw 02/12/2025 2:14 PM CDT [facility] Clarity UA Turbid(A) Clear 02/12/2025 2:14 PM CDT [facility] Glucose UA Normal Normal 02/12/2025 2:14 PM CDT [facility] Bilirubin UA Negative Negative 02/12/2025 2:14 PM CDT [facility] Ketone UA 1+(A) Negative 02/12/2025 2:14 PM CDT [facility] Specific [place] UA 1.020 1.005 - 1.030 02/12/2025 2:14 PM CDT [facility] Blood UA Negative Negative 02/12/2025 2:14 PM CDT [facility] pH UA 6.0 5.0 - 8.0 pH 02/12/2025 2:14 PM CDT [facility] Protein UA Negative Negative 02/12/2025 2:14 PM CDT [facility] Urobilinogen UA Normal Normal mg/dL 02/12/2025 2:14 PM CDT [facility] Nitrite UA Negative Negative 02/12/2025 2:14 PM CDT [facility] Leukocyte Esterase UA Negative Negative 02/12/2025 2:14 PM CDT [facility] Reflex Status Culture not indicated 02/12/2025 2:14 PM CDT [facility] Urine URINE SPECIMEN OBTAINED BY CLEAN CATCH PROCEDURE / Unknown Collection / Unknown 02/12/2025 1:58 PM CDT 02/12/2025 2:09 PM CDT us Christina Hurt TOUCH UP PAINTER HAND-[employer] LAB - URINALYSIS ORD ERABLES Final Result [facility] [address] [place] [id number], [facility] [phone] * CBC W AUTO DIFFERENTIAL (02/12/2025 1:02 PM CDT) [facility] WBC 5.7 4.0 - 10.7 x10E9/L 02/12/2025 1:14 PM [facility] RBC Count 5.19 3.90 - 5.20 x10E12/L 02/12/2025 1:14 PM [facility] Hemoglobin 15.4 11.9 - 15.8 g/dL 02/12/2025 1:14 PM [facility] Hematocrit 45.0 34.8 - 46.1 % 02/12/2025 1:14 PM [facility] MCV 86.7 80.0 - 98.0 fL 02/12/2025 1:14 PM [facility] MCH 29.7 26.7 - 33.6 pg 02/12/2025 1:14 PM [facility] MCHC 34.2 31.7 - 36.3 g/dL 02/12/2025 1:14 PM [facility] RDW-CV 12.1 11.3 - 14.8 % 02/12/2025 1:14 PM [facility] Platelet Count 232 150 - 420 x10E9/L 02/12/2025 1:14 PM [facility] MPV 9.9 7.8 - 11.4 fL 02/12/2025 1:14 PM [facility] Neutrophil % 61.2 41.0 - 74.0 % 02/12/2025 1:14 PM [facility] Lymphocyte % 27.4 17.0 - 47.0 % 02/12/2025 1:14 PM [facility] Monocyte % 8.4 3.0 - 11.0 % 02/12/2025 1:14 PM [facility] Eosinophil % 2.3 0.0 - 7.0 % 02/12/2025 1:14 PM [facility] Basophil % 0.5 0.0 - 1.6 % 02/12/2025 1:14 PM [facility] Immature Granulocytes % 0.2 0.0 - 1.0 % 02/12/2025 1:14 PM [facility] Neutrophil Absolute 3.49 1.60 - 7.50 x10E9/L 02/12/2025 1:14 PM [facility] Lymphocyte Absolute 1.56 1.00 - 4.40 x10E9/L 02/12/2025 1:14 PM [facility] Monocyte Absolute 0.48 0.15 - 1.00 x10E9/L 02/12/2025 1:14 PM [facility] Eosinophil Absolute 0.13 0.00 - 0.60 x10E9/L 02/12/2025 1:14 PM [facility] Basophil Absolute 0.03 0.00 - 0.13 x10E9/L 02/12/2025 1:14 PM [facility] Blood BLOOD SPECIMEN / Unknown Venipuncture / Unknown 02/12/2025 1:02 PM CDT 02/12/2025 1:09 PM CDT us Christina Hurt TOUCH UP PAINTER HAND-[employer] LAB - HEMATOLOGY ORD ERABLES Final Result [facility] [address] [place] [address], [facility] [phone] * (ABNORMAL) COMPREHENSIVE METABOLIC PANEL (02/12/2025 1:02 PM CDT) BUN 6(L) 7 - 26 mg/dL 02/12/2025 1:42 PM [facility] Creatinine 0.76 0.56 - 0.96 mg/dL 02/12/2025 1:42 PM [facility] Sodium 137 136 - 145 mmol/L 02/12/2025 1:42 PM [facility] Potassium 4.3 3.5 - 4.5 mmol/L 02/12/2025 1:42 PM [facility] Chloride 106 98 - 107 mmol/L 02/12/2025 1:42 PM [facility] CO2 24 22 - 29 mmol/L 02/12/2025 1:42 PM [facility] Glucose 85 70 - 99 mg/dL 02/12/2025 1:42 PM [facility] Calcium 9.5 8.4 - 10.2 mg/dL 02/12/2025 1:42 PM [facility] Protein Total 7.0 6.0 - 8.3 g/dL 02/12/2025 1:42 PM [facility] Albumin 4.1 3.4 - 5.0 g/dL 02/12/2025 1:42 PM [facility] Bilirubin Total 0.7 0.2 - 1.2 mg/dL 02/12/2025 1:42 PM [facility] Alkaline Phosphatase 70 40 - 150 U/L 02/12/2025 1:42 PM [facility] ALT 12 5 - 55 U/L 02/12/2025 1:42 PM [facility] AST 13 5 - 34 U/L 02/12/2025 1:42 PM [facility] Anion Gap 7 6 - 16 02/12/2025 1:42 PM [facility] BUN/Creatinine Ratio 8 7 - 23 02/12/2025 1:42 PM [facility] Osmolality Calculated 281 275 - 295 mOsm/kg 02/12/2025 1:42 PM [facility] Albumin/Globulin Ratio 1.4 1.1 - 2.3 02/12/2025 1:42 PM [facility] eGFR by CKD-EPI >90 >=90 mL/min/1.7 3 m2 02/12/2025 1:42 PM [facility] Blood BLOOD SPECIMEN / Unknown Venipuncture / Unknown 02/12/2025 1:02 PM CDT 02/12/2025 1:09 PM [facility] us Christina Hurt TOUCH UP PAINTER HAND-[employer] LAB - CHEMISTRY ORDE GAVIN Final Result [facility] [address] [place] [phone], [facility] [phone] * HCG BETA BLOOD QUANTITATIVE (02/12/2025 1:02 PM CDT) Beta-hCG Total Quantitative <3 mIU/mL 02/12/2025 1:52 PM [facility] Comment: HCG Numeric Result Interpretation: Non- Females: < 5 mIU/mL Post-Menopausal Females: < 7 mIU/mL This assay is cleared for use in the early detection of only. It is not approved for any other uses such as tumor marker screening, tumor marker monitoring, etc. and should not be used for any other purposes. Blood BLOOD SPECIMEN / Unknown Venipuncture / Unknown 02/12/2025 1:02 PM CDT 02/12/2025 1:09 PM CDT Christina Hurt TOUCH UP PAINTER HAND-[facility] - CHEMISTRY ROSSANA ALONSO Final Result [address] [address], [facility] [phone] * HIV-1 HIV-2 ANTIBODY + HIV P24 AG PANEL (03/12/2023 8:49 AM CDT) [facility] HIV1/2 Ab + P24 Ag Non Reactive Non Reactive 03/12/2023 9:34 AM CDT [facility] Blood BLOOD SPECIMEN / Unknown Venipuncture / Unknown 03/12/2023 8:49 AM CDT 03/12/2023 8:49 AM CDT Narrative [facility] - 03/12/2023 9:34 AM CDT No Laboratory evidence of HIV infection. Vianney Pena MD LAB - CHEMISTRY ORDERABLE S Final Result [facility] [address] [place] [address] from Last 3 Months or Most Recently Relevant to Health Maintenance [place] [address] [place] MED[place] - [facility] [employer] Advance Directives * Full Code (Latest Code Status on File) Date Activated Date Inactivated Comments 03/12/2023 7:14 PM 03/18/2023 1:13 PM
--- OUTSIDE RECORDS SUMMARY | 2025-04-10 12:51 | XMS_ITS | Patient Health Record ---
Author Organization [facility] Address [address] [place] [address] Care Team Providers Care Air Crew Supervisor Name Role Phone Latha German Primary Care Provider [phone] Lidia Marshal Unavailable [phone] Kassy Jones Unavailable [phone] Breanna Crespo Unavailable [phone] Allergies No Known Allergies Results Component Value Reference Range Notes Martina Gonzales LP Default Reviewed date:02/02/2025 12:25:28 PM Interpretation: Performing [facility], [address] [facility], Phone - [phone], Director - Trisha Notes/Report: Martina Gonzales LP Default A hand-written panel/profile was received from your office. In accordance with the [facility] Ambiguous Test Code Policy dated March 2003, we have completed your order by using the closest currently or formerly recognized AMA panel. We have assigned Lipid Panel, Test Code #214093 to this request. If this is not the testing you wished to receive on this specimen, please contact the [facility] Client Inquiry/Technical Services Department to clarify the test order. We appreciate your business. Iron and TIBC* Reviewed date:02/02/2025 12:25:40 PM Interpretation: Performing Lab[facility], [address] [facility], Phone - [phone], Director - Trisha Notes/Report: Iron Bind.Cap.(TIBC) 287 250-450 ug/dL UIBC 248 131-425 ug/dL Iron 39 27-159 ug/dL Iron Saturation 14 15-55 % Prolactin Reviewed date:02/02/2025 12:25:48 PM Interpretation: Performing Lab:[facility], [address] [place] [address], Phone - [phone], Director - [facility] Notes/Report: Prolactin 21.4 4.8-33.4 ng/mL TSH Rfx on Abnormal to Free T4 Reviewed date:02/02/2025 01:53:43 PM Interpretation: Performing Lab[facility], [address] [place] [address], Phone - [phone], Director - [facility] Notes/Report: TSH 1.720 0.450-4.500 uIU/mL CBC With Differential/Platel et* Reviewed date:02/02/2025 01:53:37 PM Interpretation: Performing Lab:[facility], [address] [place] [address], Phone - [phone], Director - [facility] Notes/Report: WBC 5.1 3.4-10.8 x10E3/uL RBC 4.86 3.77-5.28 x10E6/uL Hemoglobin 14.3 11.1-15.9 g/dL Hematocrit 45.2 34.0-46.6 % MCV 93 79-97 fL MCH 29.4 26.6-33.0 pg MCHC 31.6 31.5-35.7 g/dL RDW 11.8 11.7-15.4 % Platelets 251 150-450 x10E3/uL Neutrophils 51 Not Estab. % Lymphs 35 Not Estab. % Monocytes 9 Not Estab. % Eos 4 Not Estab. % Basos 1 Not Estab. % Neutrophils (Absolute) 2.6 1.4-7.0 x10E3/uL Lymphs (Absolute) 1.8 0.7-3.1 x10E3/uL Monocytes(Absolute) 0.5 0.1-0.9 x10E3/uL Eos (Absolute) 0.2 0.0-0.4 x10E3/uL Baso (Absolute) 0.1 0.0-0.2 x10E3/uL Immature Granulocytes 0 Not Estab. % Immature Grans (Abs) 0.0 0.0-0.1 x10E3/uL CMP 14 Comprehensive Metabol ic Panel* Reviewed date:02/02/2025 01:53:29 PM Interpretation: Performing Lab:[facility] [place], [address] [facility], Phone - [phone], Director - [facility] Notes/Report: Glucose 78 70-99 mg/dL BUN 12 6-24 mg/dL Creatinine 0.80 0.57-1.00 mg/dL eGFR 92 >59 mL/min/1.73 BUN/Creatinine Ratio 15 9-23 Sodium 141 134-144 mmol/L Potassium 4.8 3.5-5.2 mmol/L Chloride 104 96-106 mmol/L Carbon Dioxide, Total 28 20-29 mmol/L Calcium 9.5 8.7-10.2 mg/dL Protein, Total 6.9 6.0-8.5 g/dL Albumin 4.2 3.9-4.9 g/dL Globulin, Total 2.7 1.5-4.5 g/dL Bilirubin, Total 0.3 0.0-1.2 mg/dL Alkaline Phosphatase 85 44-121 IU/L AST (SGOT) 19 0-40 IU/L ALT (SGPT) 18 0-32 IU/L QuantiFERON-TB Gold Plus ([id number] 2879) Reviewed date:02/02/2025 12:27:04 PM Interpretation: Performing Lab:[facility] [place], [address] [facility] [place], Phone - [phone], Director - [facility] Notes/Report: QuantiFERON Incubation Incubation performed. QuantiFERON-TB Gold Plus Negative Negative No response to M tuberculosis antigens detected. Infection with M tuberculosis is unlikely, but high risk individuals should be considered for additional testing (ATS/IDSA/CDC Clinical Practice Guidelines, 2017). The reference range is an Antigen minus Nil result of <0.35 IU/mL. Chemiluminescence immunoassay methodology QuantiFERON Criteria QuantiFERON-TB Gold Plus is a qualitative indirect test for M tuberculosis infection (including disease) and is intended for use in conjunction with risk assessment, radiography, and other medical and diagnostic evaluations. The QuantiFERON-TB Gold Plus result is determined by subtracting the Nil value from either TB antigen (Ag) value. The Mitogen tube serves as a control for the test. QuantiFERON TB1 Ag Value 0.20 QuantiFERON TB2 Ag Value 0.22 QuantiFERON Nil Value 0.17 QuantiFERON Mitogen Value >10.00 Rapid Plasma Reagin (RPR) Te st With Reflex to Quantitative RPR and Confirmatory Treponema pallidum Antibodies Reviewed date:02/02/2025 12:27:12 PM Interpretation: Performing Lab:[address], Phone - [phone], Director - [facility] Notes/Report: RPR Non Reactive Non Reactive Hepatitis C Virus Antibody w /Rflx to Quantitative Real-time PCR ([id number]) Reviewed date:02/02/2025 12:27:24 PM Interpretation: Performing Lab:[address], Phone - [phone], Director - [facility] Notes/Report: HCV Ab Non Reactive Non Reactive Interpretation: Not infected with HCV unless early or acute infection is suspected (which may be delayed in an immunocompromised individual), or other evidence exists to indicate HCV infection. Hepatitis B Surface Antigen (HBsAg Screen) Reviewed date:02/02/2025 12:27:32 PM Interpretation: Performing Lab:[address], Phone - [phone], Director - [facility] Notes/Report: HBsAg Screen Negative Negative Ambig Abbrev CMP14 Default A hand-written panel/profile was received from your office. In accordance with the [facility] Ambiguous Test Code Policy dated March 2003, we have completed your order by using the closest currently or formerly recognized AMA panel. We have assigned Comprehensive Metabolic Panel (14), Test Code #650335 to this request. If this is not the testing you wished to receive on this specimen, please contact the [facility] Client Inquiry/Technical Services Department to clarify the test order. We appreciate your business. HIV Screen *HIV 1, 2 Ab, p24 Ag ([id number]) Reviewed date:02/02/2025 12:26:35 PM Interpretation: Performing Lab:[address], Phone - [phone], Director - [facility] Notes/Report: HIV Ab/p24 Ag Screen Non Reactive Non Reactive HIV-1/HIV-2 antibodies and HIV-1 p24 antigen were NOT detected. There is no laboratory evidence of HIV infection. HIV Negative Lipid Panel* Reviewed date:02/02/2025 12:26:25 PM Interpretation: Performing Lab:[facility], [address] [place] [address], Phone - [phone], Director - Trisha Notes/Report: Cholesterol, Total 158 100-199 mg/dL Triglycerides 57 0-149 mg/dL HDL Cholesterol 61 >39 mg/dL VLDL Cholesterol Didier 12 5-40 mg/dL LDL Chol Calc ([facility]) 85 0-99 mg/dL FSH, Serum Reviewed date:02/02/2025 12:26:09 PM Interpretation: Performing Lab:[facility], [address] [place] [address], Phone - [phone], [facility] - [facility] Notes/Report: FSH 7.1 Adult Female Range Follicular phase 3.5 - 12.5 Ovulation phase 4.7 - 21.5 Luteal phase 1.7 - 7.7 Postmenopausal 25.8 - 134.8 Hemoglobin A1c* Reviewed date:02/02/2025 12:25:57 PM Interpretation: Performing Lab:[facility], Phone - [phone], Director - [facility] Notes/Report: Hemoglobin A1c 4.9 4.8-5.6 % . Prediabetes: 5.7 - 6.4 Diabetes: >6.4 Glycemic control for adults with diabetes: <7.0 12 Panel Urine Drug Screen Reviewed date:01/14/2025 09:42:07 AM Interpretation: Performing Lab: Notes/Report: THC NEG CEZAR NEG MOP (OPI) NEG AMP NEG MET NEG BAR NEG BZO POS MDMA NEG MTD NEG OXY NEG PCP NEG BUP NEG Breathalyzer Reviewed date:01/14/2025 10:43:48 AM Interpretation:0.0 Performing Lab: Notes/Report: 0.0 ANGEL LUIS 0.000 Reason For Referral No Information Medications Medication SIG (Take, Route, Frequency, Duration) Notes Start Date End Date Status Fluticasone Propionate 50 MCG/ACT 2 SPRAYS DAILY EACH NOSTRIL Nasally at night; Duration: 30 days 01/14/2025 Not-Taking clonazePAM 1 MG 1 tablet Orally 3 ti mes a day; Duration: 30 days Active Rexulti 1 MG 1 tablet at bedtime Orally Once a day; Duration: 14 days 02/02/2025 Active Sertraline HCl 100 MG 1 tablet Orally On ce a day Active Gabapentin 300 MG 1 capsule Orally 3 times a day Active Social History Tobacco Use: Social History Observation Description Date Details (start date - stop date) Never Smoker NA - NA Tobacco Control (Standard) Question Answer Notes Tobacco use: Nonsmoker Problems Problem Type SNOMED Code ICD Code Onset Dates Problem Status W/U Status Risk Notes Problem Hallucinations (3540107) Hallucinations, unspecified (R44.3) Active confirmed Problem Mood disorder (24918885) Mood disorder (F39) Active confirmed Problem Anxiety (70487509) Anxiety (F41.9) Active confi rmed Problem Schizophrenia (33887962) Schizophrenia (F20.9) Active confirmed Problem Generalized anxiety disorder (54376984) MARLEE (generalized anxiety disorder) (F41.1) Active confirmed Problem Akathisia (468813785) Akathisia (G25.71) Active confirmed Problem Overweight (025545446) Over weight (E66.3) Active confirmed Problem Irregular menstruation (81279367) Menstrual changes (N92.6) Active confirmed Vital Signs Heart Rate 89 /min 01/14/2025 Temperature 97.7 degrees Fahrenheit 01/14/2025 Respiratory Rate 16 /min 01/14/2025 Blood pressure diastolic 64 mm Hg 01/14/2025 Oximetry 95 % 01/14/2025 Height 68 in 01/14/2025 Blood pressure systolic 100 mm Hg 01/14/2025 Weight 177.0 lbs 01/14/2025 BMI 26.91 kg/m2 01/14/2025 Encounters Encounter Location Date Provider Diagnosis [facility] [place] [address] [address] 01/31/2025 Kassy Jones [facility] [address] [place] [address] 01/14/2025 Marshal Murillo Over weight E66.3 ; Hallucinations, unspecified R44.3 ; Akathisia G25.71 ; Screening for diabetes mellitus Z13.1 ; Menstrual changes N92.6 ; Lipid screening Z13.220 ; Exposure to potential infection Z20.9 ; Anxiety F41.9 and Medication monitoring encounter Z51.81 [facility] [address] [place] [address] 01/14/2025 Breanna Crespo Hallucinations, unspecified R44.3 and Anxiety F41.9 [facility] [address] [address] 01/17/2025 Kassy Robert Mood disorder F39 and MARLEE (generalized anxiety disorder) F41.1 [facility] [address] [address] 01/24/2025 Kassy Robert MARLEE (generalized anxiety disorder) F41.1 and Schizophrenia F20.9 [facility] [address] [address] 02/01/2025 Kassy Robert Schizophrenia F20.9 and MARLEE (generalized anxiety disorder) F41.[address] [address] 01/14/2025 Latha German [facility] [address] [address] 01/17/2025 Kassy Robert [facility] [address] [address] 01/24/2025 Kassy Robert Schizophrenia F20.9 [facility] [address] [address] 02/02/2025 Kassy Robert Schizophrenia F20.9 [facility] [address] [address] 02/02/2025 Kassy Robert Assessments Encounter Date Diagnosis (ICD Code) Assessment Notes Treatment Notes Treatment Clinical Notes Section Notes 01/14/2025 Hallucinations, unspecified (ICD-10 - R44.3) 01/14/2025 Hallucinations, unspecified (ICD-10 - R44.3) 01/14/2025 Over weight (ICD-10 - E66.3) 01/17/2025 Mood disorder (ICD-10 - F39) 01/17/2025 MARLEE (generalized anxiety disorder) (ICD-10 - F41.1) 01/24/2025 Schizophrenia (ICD-10 - F20.9) Start Cobenfy. Discussed to take dose at least one hour before a meal or at least two hours after a meal. Discussed to take twice daily as this is not an extended release medication. Discussed that intermittent blood work may be required to assess effects on organs such as liver and kidneys. Discussed side effects of the medication may include: nausea, vomiting, dyspepsia, abdominal pain, diarrhea, gastroesophageal reflux, constipation, hypertension, tachycardia, dizziness, and the rare but possible dangerous side effect of angioedema. Discussed to talk with provider if , planning to become , or . Call for problems with medication, side effects or need for dosage change. 01/24/2025 MARLEE (generalized anxiety disorder) (ICD-10 - F41.1) 01/24/2025 Schizophrenia (ICD-10 - F20.9) 02/01/2025 Schizophrenia (ICD-10 - F20.9) 02/02/2025 Schizophrenia (ICD-10 - F20.9) 01/14/2025 Akathisia (ICD-10 - G25.71) 02/01/2025 MARLEE (generalized anxiety disorder) (ICD-10 - F41.1) It was explained to the patient that I do not continue benzodiazepines superintendent [employer] and we will start to gradually reduce the dose and/or switch to a longer acting benzo such as Valium to help control any withdrawal/anxiety associated with benzo tapering. Patient became very upset and stated that she could not live without the clonazepam and continuously asked for an exception to be made. The risks associated with custodial use of benzos were explained to her and she was educated that there are other options to manage anxiety. 01/14/2025 Anxiety (ICD-10 - F41.9) 01/14/2025 Screening for diabetes mellitus (ICD-10 - Z13.1) 01/14/2025 Menstrual changes (ICD-10 - N92.6) 01/14/2025 Lipid screening (ICD-10 - Z13.220) 01/14/2025 Exposure to potential infection (ICD-10 - Z20.9) 01/14/2025 Anxiety (ICD-10 - F41.9) 01/14/2025 Medication monitoring encounter (ICD-10 - Z51.81) 01/14/2025 Other Clinician met w ith client to assess needs for residential services. Clinician gathered information regarding historical presentation of mental health and substance use symptoms including withdrawal, HIV Risk assessment, psychiatric hospitalization history and presenting concern. Clinician conducted PHQ9 and CSSRS assessments as well as social drivers of health screening for the purposes of identifying additional service needs. 01/14/2025 Other Clinician met w ith client to assess needs for residential services. Clinician gathered information regarding historical presentation of mental health and substance use symptoms including withdrawal, HIV Risk assessment, psychiatric hospitalization history and presenting concern. Clinician conducted PHQ9 and CSSRS assessments as well as social drivers of health screening for the purposes of identifying additional service needs. 01/17/2025 Other May self-administer medications or be administered own oral medications per [facility] protocols. Provided informed consent with understanding of side effects, adverse effects, risks and benefits as well as alternative treatments as previously discussed and with the above recommended medications & other aspects of the treatment program. Agrees to return sooner if symptoms worsen or suicidal or homicidal ideations occur. Plan: -Continue Gabapentin 300 mg TID (for mood) *5 day rx sent on 01/14 -Continue Benztropine 1 mg BID (has been on it for 8 months and does not want to stop or lower dose at this time) -Continue Clonazepam 1 mg TID PRN *5 day rx sent 01/14 -Continue Sertraline 100 mg once daily -Start Caplyta 21 mg QHS *patient lives in [place], unwilling to drive to [place] for future appointments after discharge from the unit. Will provide 1 month supply of medication in case she leave the unit early. *labs have been ordered, has to go to [place] to have them drawn -Follow up: 1 week [] Hard Rx handed to patient [] Rx phoned into pharmacy [x] Rx faxed/e-prescribed into pharmacy [x] PDMP Reviewed [] [facility] Reviewed Encouraged by Kassy Jones [facility]: [] consider utilizing therapist/counselor /social problems specialist/psychologist , referral given [x] continue with therapist/counselor /social problems specialist/psychologist Psychoeducation: -Treatment options discussed in detail with patient/guardian verbalizing understanding of treatment rationales. -Side effects and benefits of all medications prescribed discussed at length between psychiatric prescribing provider and patient/guardian along with the risks associated of [id number] interactions, including but not limited to prescription medications, OTC medications, vitamins, minerals and herbal supplements. -Patient/Guardian and provider dialogue showcased verbalized understanding from patient on rationales of medication risk vs benefits. -Information with neurobiology of presenting neurotransmitter disorder, mood stability, sleep hygiene and 7-8 hours of uninterrupted sleep per night with wakeful and refreshed awakening and day long alertness discussed. -Reduction of stress and anxiety to aid in focus and concentration discussed, again, with patient/guardian physically nodding, voicing understanding, and engaged in treatment plan with Kassy Jones [facility]. -Perceiving complete understanding of rationale by patient/guardian and willingness to adhere to formulated plan of care by prescriber with patient/guardian buy-in, willingness to participate actively in plan of care and willing to take charge of own care. -Although geared for female patients, all patients/guardians are informed by prescribing provider of risks of medications that could potentially be taken by female/women within their [place] of influence and that women who use medicine during have a higher chance of having a baby with defects. -Patient/Guardian denies being and/or knowing of women who are at present and denies wanting to become in the foreseeable future, 0-6 months from now. -Patient/Guardian again informed of the risk of pharmaceutical medications consumed during and how there are potential negative effects on the developing fetus. -Patient/Guardian verbalizes understanding of rationale and physically nods head in agreement that if a should occur, to consult with provider, LENO SEWER and/or Nurse Meat Cutting Teacher to determine if prescribed medications should or should not be continued. -Instructions regarding both the medical/pharmacolog ical and non-pharmacologic aspects of the treatments employed were given, and the patient/guardian seemed to understand this. Risks and benefits of treatment, and of non-treatment, were also discussed. The patient/guardian understands the more frequent side effects associated with the medications. -The use of psychotherapy was addressed today and will continue on an as needed basis for the foreseeable future. The choice is, of course, ultimately left to the patient/guardian. -Patient/Guardian was encouraged to make a follow-up appointment for the next visit. -Additional treatment was discussed and has been addressed on an ongoing basis within the context of this patient's illness, resources, progress, and other appropriate factors. Being compliant with a regular exercise routine, consistent medication use, ongoing psychotherapy, eating and sleeping well, as well as the importance of handling stress, was discussed. Medication Hx: -Haldol (caused severe akathisia) -Geodon (caused akathisia) -Abilify (stopped working at max dose after 6-12 months) -Lurasidone (did not work) -Risperidone (causes akathisia, facial movements and occasional tremor) 01/24/2025 Other May self-administer medications or be administered own oral medications per [facility] protocols. Provided informed consent with understanding of side effects, adverse effects, risks and benefits as well as alternative treatments as previously discussed and with the above recommended medications & other aspects of the treatment program. Agrees to return sooner if symptoms worsen or suicidal or homicidal ideations occur. Plan: -Continue Gabapentin 300 mg TID (for mood) *30 day rx sent on 01/17 -Stop Benztropine 1 mg BID -Continue Clonazepam 1 mg TID PRN *30 day rx sent 01/17 -Continue Sertraline 100 mg once daily *30 day rx sent 01/17 -Start Cobenfy 50 mg/20 mg BID one hour before or two hours after meals -Follow up: 1 week [] Hard Rx handed to patient [] Rx phoned into pharmacy [x] Rx faxed/e-prescribed into pharmacy [x] PDMP Reviewed [] [facility] Reviewed Encouraged by Kassy Jones PMHNP-BC to: [] consider utilizing therapist/counselor /social problems specialist/psychologist , referral given [x] continue with therapist/counselor /social problems specialist/psychologist Psychoeducation: -Treatment options discussed in detail with patient/guardian verbalizing understanding of treatment rationales. -Side effects and benefits of all medications prescribed discussed at length between psychiatric prescribing provider and patient/guardian along with the risks associated of qajv-gx-nthn interactions, including but not limited to prescription medications, OTC medications, vitamins, minerals and herbal supplements. -Patient/Guardian and provider dialogue showcased verbalized understanding from patient on rationales of medication risk vs benefits. -Information with neurobiology of presenting neurotransmitter disorder, mood stability, sleep hygiene and 7-8 hours of uninterrupted sleep per night with wakeful and refreshed awakening and day long alertness discussed. -Reduction of stress and anxiety to aid in focus and concentration discussed, again, with patient/guardian physically nodding, voicing understanding, and engaged in treatment plan with Kassy Jones [facility]. -Perceiving complete understanding of rationale by patient/guardian and willingness to adhere to formulated plan of care by prescriber with patient/guardian buy-in, willingness to participate actively in plan of care and willing to take charge of own care. -Although geared for female patients, all patients/guardians are informed by prescribing provider of risks of medications that could potentially be taken by female/women within their [place] of influence and that women who use medicine during have a higher chance of having a baby with defects. -Patient/Guardian denies being and/or knowing of women who are at present and denies wanting to become in the foreseeable future, 0-6 months from now. -Patient/Guardian again informed of the risk of pharmaceutical medications consumed during and how there are potential negative effects on the developing fetus. -Patient/Guardian verbalizes understanding of rationale and physically nods head in agreement that if a should occur, to consult with provider, LENO SEWER and/or Nurse Meat Cutting Teacher to determine if prescribed medications should or should not be continued. -Instructions regarding both the medical/pharmacolog ical and non-pharmacologic aspects of the treatments employed were given, and the patient/guardian seemed to understand this. Risks and benefits of treatment, and of non-treatment, were also discussed. The patient/guardian understands the more frequent side effects associated with the medications. -The use of psychotherapy was addressed today and will continue on an as needed basis for the foreseeable future. The choice is, of course, ultimately left to the patient/guardian. -Patient/Guardian was encouraged to make a follow-up appointment for the next visit. -Additional treatment was discussed and has been addressed on an ongoing basis within the context of this patient's illness, resources, progress, and other appropriate factors. Being compliant with a regular exercise routine, consistent medication use, ongoing psychotherapy, eating and sleeping well, as well as the importance of handling stress, was discussed. Medication Hx: -Haldol (caused severe akathisia) -Geodon (caused akathisia) -Abilify (stopped working at max dose after 6-12 months) -Lurasidone (did not work) -Risperidone (causes akathisia, facial movements and occasional tremor) 02/01/2025 Other Medication Hx: -Haldol (caused severe akathisia) -Geodon (caused akathisia) -Abilify (stopped working at max dose after 6-12 months) -Lurasidone (did not work) -Risperidone (causes akathisia, facial movements and occasional tremor) -Cobenfy (caused severe N/V at 100-50 mg, 50-20 mg worked to control positive symptoms) May self-administer medications or be administered own oral medications per [facility] protocols. Provided informed consent with understanding of side effects, adverse effects, risks and benefits as well as alternative treatments as previously discussed and with the above recommended medications & other aspects of the treatment program. Agrees to return sooner if symptoms worsen or suicidal or homicidal ideations occur. Plan: -Continue Gabapentin 300 mg TID *30 day filled 01/17 -Continue Clonazepam 1 mg TID PRN *30 day filled 01/19 *will start weaning/switch to Valium at next visit -Continue Sertraline 100 mg once daily *30 day sent 01/17 -Decrease Cobenfy to 50/20 mg BID one hour before or two hours after meals -Follow up: 2 weeks [] Hard Rx handed to patient [] Rx phoned into pharmacy [x] Rx faxed/e-prescribed into pharmacy [x] PDMP Reviewed [] [facility] Reviewed Encouraged by Kassy Jones PMHNP- to: [x] consider utilizing therapist/counselor /social problems specialist/psychologist , referral given [] continue with therapist/counselor /social problems specialist/psychologist Psychoeducation: -Treatment options discussed in detail with patient/guardian verbalizing understanding of treatment rationales. -Side effects and benefits of all medications prescribed discussed at length between psychiatric prescribing provider and patient/guardian along with the risks associated of [id number] interactions, including but not limited to prescription medications, OTC medications, vitamins, minerals and herbal supplements. -Patient/Guardian and provider dialogue showcased verbalized understanding from patient on rationales of medication risk vs benefits. -Information with neurobiology of presenting neurotransmitter disorder, mood stability, sleep hygiene and 7-8 hours of uninterrupted sleep per night with wakeful and refreshed awakening and day long alertness discussed. -Reduction of stress and anxiety to aid in focus and concentration discussed, again, with patient/guardian physically nodding, voicing understanding, and engaged in treatment plan with Kassy Jones [facility]. -Perceiving complete understanding of rationale by patient/guardian and willingness to adhere to formulated plan of care by prescriber with patient/guardian buy-in, willingness to participate actively in plan of care and willing to take charge of own care. -Although geared for female patients, all patients/guardians are informed by prescribing provider of risks of medications that could potentially be taken by female/women within their [place] of influence and that women who use medicine during have a higher chance of having a baby with defects. -Patient/Guardian denies being and/or knowing of women who are at present and denies wanting to become in the foreseeable future, 0-6 months from now. -Patient/Guardian again informed of the risk of pharmaceutical medications consumed during and how there are potential negative effects on the developing fetus. -Patient/Guardian verbalizes understanding of rationale and physically nods head in agreement that if a should occur, to consult with provider, LENO SEWER and/or Nurse Meat Cutting Teacher to determine if prescribed medications should or should not be continued. -Instructions regarding both the medical/pharmacolog ical and non-pharmacologic aspects of the treatments employed were given, and the patient/guardian seemed to understand this. Risks and benefits of treatment, and of non-treatment, were also discussed. The patient/guardian understands the more frequent side effects associated with the medications. -The use of psychotherapy was addressed today and will continue on an as needed basis for the foreseeable future. The choice is, of course, ultimately left to the patient/guardian. -Patient/Guardian was encouraged to make a follow-up appointment for the next visit. -Additional treatment was discussed and has been addressed on an ongoing basis within the context of this patient's illness, resources, progress, and other appropriate factors. Being compliant with a regular exercise routine, consistent medication use, ongoing psychotherapy, eating and sleeping well, as well as the importance of handling stress, was discussed. Plan Of Treatment No Information Insurance Providers Payer Name Payer Address Payer Phone Subscriber Number Group Number Insured Name Patient Relationship to Insured Coverage Start Date Coverage End Date Cher HUFFMAN [address] [place] [phone] [id number] Larissa Alvarez Self - patient is the insured 5 MEDICAID [address] [place] [phone] [id number] Larissa Alvarez Self - patient is the insured 5 Medical (General) History Medical History History ICD Code Sjogrens autoimmune disease schizoaffective Surgical History Surgery Date(Month/Year) Breast augmentation Breast implants removed 2021 Hospitalization History Reason Date(Month/Year) [facility] 11/2024 [facility] 11/2024
--- OUTSIDE RECORDS SUMMARY | 2025-04-10 12:51 | XMS_ITS | Referral Summary ---
Author Organization [facility] Address [address] [place] [address] Care Team Providers Care Swimmer Name Role Phone Lam Akins Primary Care Provider [phone] Allergies No known active allergies Medications DULoxetine DR (CYMBALTA) 60 mg capsule Take 1 capsule (60 mg total) by mouth 2 (two) times a day 3 Active benztropine (COGENTIN) 2 mg tablet Take 1 tablet (2 mg total) by mouth 2 (two) times a day Active clonazePAM (KlonoPIN) 2 mg tablet Take 1 tablet (2 mg total) by mouth 3 (three) times a day Active gabapentin (NEURONTIN) 400 mg capsule Take 1 capsule (400 mg total) by mouth daily 3 Active lurasidone (LATUDA) 40 mg tablet Take 2 tablets (80 mg total) by mouth nightly Active venlafaxine (EFFEXOR) 37.5 mg tablet Take 1 tablet (37.5 mg total) by mouth daily Active clonazePAM (KlonoPIN) 2 mg tabletIndicati ons:Anxiety attack Take 1 tablet (2 mg total) by mouth 2 (two) times a day Collaborating physician Ricco Farley MD 5 tablet 3 Active prochlorperazi ne (COMPAZINE) 10 mg tablet Take 1 tablet (10 mg total) by mouth 2 (two) times a day as needed for nausea or vomiting 10 tablet 4 Active Active Problems Problem Noted Date Diagnosed Date Anxiety attack 09/19/2023 Dentalgia 09/19/2023 Benzodiazepine abuse 03/13/2023 Bipolar affective disorder, current episode manic with psychotic symptoms 03/13/2023 Generalized anxiety disorder 03/13/2023 PTSD (post-traumatic stress disorder) 03/13/2023 Bipolar I disorder with clinton 03/12/2023 Social History Tobacco Use Types Packs/Day Years Used Date Smoking Tobacco: Never Tobacco Cessation:Counseling Given: Not Answered Alcohol Use Standard Drinks/Week Comments Not Currently 0 (1 standard drink = 0.6 oz pur e alcohol) Personal Safety Answer Date Recorded Have you ever been in or are you currently in a harmful physical or emotional relationship or is someone making you feel afraid or unsafe? Denies 11/30/2024 Comments No Sex and Gender Information Value Date Recorded Sex Assigned at Not on file Legal Sex Female 3:01 PM MEDICAL CLAIMS EXAMINER Gender Identity Not on file Sexual Orientation Not on file Last Filed Vital Signs Vital Sign Reading Time Taken Comments Blood Pressure 122/79 11/30/2024 11:18 AM CDT Pulse 96 11/30/2024 11:18 AM CDT Temperature 36.5 C (97.7 F) 11/30/2024 11:18 AM CDT Respiratory Rate 16 11/30/2024 11:18 AM CDT Oxygen Saturation 98% 11/30/2024 11:18 AM CDT Inhaled Oxygen Concentration - - Weight 80.7 kg (178 lb) 11/30/2024 11:18 AM CDT Height 172.7 cm (5' 8) 11/30/2024 11:18 AM CDT Body Mass Index 27.06 11/30/2024 11:18 AM CDT Plan of Treatment Not on file Insurance [facility] IDPA Care Teams Swimmer Relationship Specialty Start Date End Date Lam Akins PA [address] [place] [address] PCP - General Family Practice 10/15/23
--- OUTSIDE RECORDS SUMMARY | 2025-04-10 12:51 | XMS_ITS ---
Author Organization [facility] Address [address] [place] [address] Care Team Providers Care Turbine Assembler Name Role Phone Latha German Primary Care Provider [phone] Kassy Jones Unavailable [phone] REASON FOR VISIT 1 week f/u Medications Medication SIG (Take, Route, Frequency, Duration) Notes Start Date End Date Status Fluticasone Propionate 50 MCG/ACT 2 SPRAYS DAILY EACH NOSTRIL Nasally at night; Duration: 30 days 01/14/2025 Not-Taking Cobenfy 100-20 MG 1 capsule one hour before or two hours after a meal Orally Twice a day; Duration: 30 days Pt on CRU, please deliver 01/24/2025 Active Gabapentin 300 MG 1 capsule Orally 3 times a day Pt on CRU, please deliver Active clonazePAM 1 MG 1 tablet Orally 3 times a day; Duration: 30 days Pt on CRU, please deliver Active Sertraline HCl 100 MG 1 tablet Orally Once a day Pt on CRU, please deliver Active Encounters Encounter Location Date Provider Diagnosis [facility] [address] [place] [address] 01/31/2025 Kassy Jones Plan Of Treatment No Information Progress Notes * Larissa ALVAREZDOB:1980 (44 yo F)Acc No.[id number]:01/31/2025 UNLOCKED PROGRESS NOTE DNS Patient: Tommie ESTRELLADONNY Larissa Provider: Melita Jones, MSN, HORTICULTURAL SPECIALTY GROWER, PMHNP-BC :1980 A ge:44 Y S ex:Female Date:01/31/2025 Address:[address] [place] [address] [facility] Pcp:Latha German Subjective: * Chief Complaints: * 1 . 1 week f/u. * HPI: S lav[place]: Larissa is a 44 y/o F last seen on 01/24/25 in the [facility]. She has since been discharged and is back home in [place]. Patient was told at the first visit that I would not be able to continue to treat her when she left the unit unless she was willing to drive to a [place] location for the appointments d/t being unlicensed in [place], patient verbalized understanding at that time and stated she would find a provider near her. Patient states that she needs a release form from the CRU to schedule a f/u visit with her former psychiatrist. She was educated to contact the CRU to obtain that and their direct number was given to her. She was given enough medication to get her to her next appointment with her new psychiatrist in [place]. * Medical History: * Medications: T aking clonazePAM 1 MG Tablet 1 tablet Orally 3 times a day , Notes to Pharmacist: Pt on CRU, please deliver, Taking Sertraline HCl 100 MG Tablet 1 tablet Orally Once a day , Notes to Pharmacist: Pt on CRU, please deliver, Taking Gabapentin 300 MG Capsule 1 capsule Orally 3 times a day , Notes to Pharmacist: Pt on CRU, please deliver, Taking Cobenfy 100-20 MG Capsule 1 capsule one hour before or two hours after a meal Orally Twice a day , Notes to Pharmacist: Pt on CRU, please deliver, Not-Taking Fluticasone Propionate 50 MCG/ACT Suspension 2 SPRAYS DAILY EACH NOSTRIL Nasally at night , Medication List reviewed and reconciled with the patient Objective: * Vitals: Assessment: Plan: * Treatment: * * Electronic signature of Thomas Jones on 04/10/2025 at 12:50 PM CDT Sign off status: Pending * Provider: Melita Jones, MSN, HORTICULTURAL SPECIALTY GROWER, [facility]- Date: 0 01/31/2025 Generated for Printing/Faxing/eTransmitting on: 0 04/10/2025 12:50 PM CDT History and Physical Notes * HPI (History of Present Illness) Category Sub-Category Detail Notes Category Not es Summary Larissa is a 44 y /o F last seen on 01/24/25 in the [facility]. She has since been discharged and is back home in [place]. Patient was told at the first visit that I would not be able to continue to treat her when she left the unit unless she was willing to drive to a [place] location for the appointments d/t being unlicensed in [place], patient verbalized understanding at that time and stated she would find a provider near her. Patient states that she needs a release form from the CRU to schedule a f/u visit with her former psychiatrist. She was educated to contact the CRU to obtain that and their direct number was given to her. She was given enough medication to get her to her next appointment with her new psychiatrist in [place].
--- OUTSIDE RECORDS SUMMARY | 2025-04-10 12:51 | XMS_ITS ---
Author Organization [facility] Address [address] [place] [address] Care Team Providers Care Architectural Intern Name Role Phone Latha German Primary Care Provider [phone] Kassy Jones Unavailable [phone] REASON FOR VISIT 1 week f/u Medications Medication SIG (Take, Route, Frequency, Duration) Notes Start Date End Date Status Cobenfy 100-20 MG 1 capsule one hour before or two hours after a meal Orally Twice a day; Duration: 30 days Pt on CRU, please deliver 01/24/2025 Active Gabapentin 300 MG 1 capsule Orally 3 times a day Pt on CRU, please deliver Active Fluticasone Propionate 50 MCG/ACT 2 SPRAYS DAILY EACH NOSTRIL Nasally at night; Duration: 30 days 01/14/2025 Not-Taking clonazePAM 1 MG 1 tablet Orally 3 times a day; Duration: 30 days Pt on CRU, please deliver Active Sertraline HCl 100 MG 1 tablet Orally Once a day Pt on CRU, please deliver Active Encounters Encounter Location Date Provider Diagnosis [facility] [address] [place] [address] 01/31/2025 Kassy Jones Plan Of Treatment No Information Progress Notes * Larissa ALVAREZDOB:1980 (44 yo F)Acc No.[id number]:01/31/2025 UNLOCKED PROGRESS NOTE Patient: Larissa ORTIZ Provider: Melita Jones, MSN, PAPERBACK MACHINE OPERATOR, PMHNP-BC :1980 A ge:44 Y S ex:Female Date:01/31/2025 Address:[address] [place], [place] [id number] Pcp:Latha German Subjective: * Chief Complaints: * 1 . 1 week f/u. * Medical History: * Medications: T aking [...] SPRAYS DAILY EACH NOSTRIL Nasally at night Objective: * Vitals: Assessment: Plan: * Treatment: * * Electronic signature of Thomas Jones on 04/10/2025 at 12:50 PM CDT Sign off status: Pending * Provider: Melita Jones, MSN, PAPERBACK MACHINE OPERATOR, [facility] Date: 01/31/2025 Generated for Printing/Faxing/eTransmitting on: 04/10/2025 12:50 PM CDT
--- OUTSIDE RECORDS SUMMARY | 2025-04-10 12:51 | XMS_ITS | Clinical Summary ---
Author Organization [facility] Address [address] [place] [address] Care Team Providers Care Sign Maker Name Role Phone Lam Akins Primary Care Provider [phone] Allergies No known active allergies Medications DULoxetine [...] 03/13/2023 Bipolar I disorder with clinton 03/12/2023 Medical History Medical History Date Comments Anxiety Social History Tobacco Use Types Packs/Day Years [...] on file Legal Sex Female 3:01 PM DRESS CAP MAKER Gender Identity Not on file Sexual Orientation Not on file Obstetrics History Last Filed Vital Signs Vital Sign Reading [...] 11/30/2024 11:18 AM CDT Plan of Treatment Health Maintenance Due Date Last Done Comments Breast Cancer Screening-Mammogram 1980 Cervical Cancer Screening 1980 Colon Cancer Screening-Colonoscopy 1980 Depression Screening 1980 Hepatitis C Screening 1978 DTaP/Tdap/Td Vaccine (1 - Tdap) 1989 Hepatitis B Screening 1996 Regular Well Visit/Exam 18-64 1996 Influenza Vaccine (Season Ended) 2025 08/19/20 23 HPV Vaccines Aged Out No longer eligi ble based on patient's age to complete this topic Pneumococcal vaccine <65 Aged Out No longer eligible based on patient's age to complete this topic Insurance IDPA [facility] IDWI Care Teams Sign Maker Relationship Specialty Start Date End Date Lam Akins PA [address] [place] [address] PCP - General Family Practice 10/15/23
--- OUTSIDE RECORDS SUMMARY | 2025-04-10 12:51 | XMS_ITS ---
Author Organization [facility] Address [address] [place] [address] Phone Care Team Providers Care Milling Machine Tender Name Role Phone Paloma Li MD Primary Care Provider [phone] [facility] Status:Enrolled (Active) Start date:10/20/2024 Enrollment date:10/20/2024 Related social drivers of health:Intimate Partner Violence, Social Connections, Alcohol Use, Financial Resource Strain, Depression, Stress, Physical Activity, Food Insecurity, Transportation Needs, Housing Stability, Utilities Continued Care and Services Coordination
[2025-04-10 12:55] VITALS: BP 96/67; PULSE 105; RESP 18; TEMP 36.2; O2SAT 98
--- NOTE | 2025-04-10 13:25 | ED_ITS ---
HPI - General Adult General Chief complaint: Psychiatric Symptoms <Sandeep Castillo MD - Last Filed: 04/11/25 21:51> Stated complaint: BIZARRE BEHAVIOR <Sandeep Castillo MD - Last Filed: 04/11/25 21:51> Time Seen by Provider: 04/10/25 13:17 <Sandeep Castillo MD - Last Filed: 04/11/25 21:51> History of Present Illness HPI narrative: 44-year-old female with history of anxiety and schizophrenia presents emergency department for evaluation for bizarre behavior. Patient was in a field and stating that she is a pedophile and she killed her cat. Patient is requesting to go straight to present because she is not a good person. Patient is calm appearing and does not appear to be in any acute distress. Patient has had previous evaluation for suicidal ideation. Patient had previously stated she had been on Zyprexa but stopped because of weight gain. Patient does reside and [place]. And patient's mother states that the patient is and a constant state of psychosis. Patient has had multiple hospitalizations. <Sandeep Castillo MD - Last Filed: 04/11/25 21:51> Related Data Home medications: Home Medications ?Medication ?Instructions ?Recorded ?Confirmed ?Last Taken ?Type alprazolam 2 mg tablet 2 mg PO TID PRN Anxiety 08/13/22 08/13/22 Unknown History venlafaxine 150 mg 300 mg PO DAILY 08/13/22 08/13/22 Unknown History capsule,extended release 24 hr zolpidem 5 mg tablet 10 mg PO HS PRN Insomnia 08/13/22 09/21/23 Unknown History benztropine 2 mg tablet 1 mg PO BID 09/21/23 09/21/23 Unknown History clonazepam 2 mg tablet 2 mg PO TID PRN Anxiety 09/21/23 09/21/23 Unknown History gabapentin 400 mg capsule 400 mg PO DAILY 09/21/23 09/21/23 Unknown History haloperidol 5 mg tablet 5 mg PO BID 09/21/23 09/21/23 Unknown History lurasidone 60 mg tablet 60 mg PO HS 09/21/23 09/21/23 Unknown History venlafaxine 75 mg tablet 75 mg PO DAILY 09/21/23 09/21/23 Unknown History <Sandeep Castillo MD - Last Filed: 04/11/25 21:51> Allergies/adverse reactions: Allergies Allergy/AdvReac Type Severity Reaction Status Date / Time No Known Allergies Allergy Verified 04/10/25 13:26 <Sandeep Castillo MD - Last Filed: 04/11/25 21:51> Review of Systems 2 Review of Systems: All systems reviewed & are unremarkable except as noted in HPI and below <Sandeep Castillo MD - Last Filed: 04/11/25 21:51> PMFSH Social History Social History: Social History Substance use type: unknown <Sandeep Castillo MD - Last Filed: 04/11/25 21:51> Exam 2 Narrative: APPEARANCE: Well appearing, no pain, no distress, well-nourished. HEAD: normocephalic, atraumatic. EYES: PERRLA/EOMI, conjunctivae clear. NOSE: Normal no drainage EARS:TMS clear with good light reflex. THROAT: Pharynx clear, no exudate. NECK: Supple. No adenopathy, no masses. RESPIRATORY: Airway patent, respirations nonlabored. Clear to auscultation bilaterally, no rales, rhonchi, wheezing. CARDIOVASCULAR: Regular rate and rhythm without murmurs rubs or gallops. ABDOMINAL: Soft, nontender, nondistended, normal bowel sounds MUSCULOSKELETAL: Moves all extremities. Strength/ROM intact, No edema, No calf tenderness. NEURO: Alert. Cranial nerves II through XII intact. Good gait. Good coordination SKIN: Warm, dry. Normal Color PSYCHIATRIC: Anxious affect <Sandeep Castillo MD - Last Filed: 04/11/25 21:51> Course Course Emergency Course: Patient care signed over by previous provider pending psychiatric placement. Patient did require additional dose of Zyprexa given her psychosis and wandering around the emergency department hallways. She is very redirectable and pleasant otherwise. No acute events overnight during my shift and she remains hemodynamically stable. Bed has been assigned at [facility] and transportation services were arranged for psychiatric hospital transfer. < Jack Harmon MD - Last Filed: 04/11/25 03:40> Patient care signed over by previous provider pending psychiatric placement. Patient did require additional dose of Zyprexa given her psychosis and wandering around the emergency department hallways. She is very redirectable and pleasant otherwise. No acute events overnight during my shift and she remains hemodynamically stable. Bed has been assigned at [facility] and transportation services were arranged for psychiatric hospital transfer. Patient signed out to me at 07:00. SHe is pending EMS transportation. Patient had been noted to be occasionally wandering into the verbally redirectable though also received PO Zyprexa. Did not require additional medications while remaining in the ED. Left the ED around 09:00 <Tessa Palomares MD - Last Filed: 04/11/25 09:01> Vital Signs Vital signs: Vital Signs Temperature 97.2 F L 04/10/25 12:55 Pulse Rate 105 H 04/10/25 12:55 Respiratory Rate 18 04/10/25 12:55 Blood Pressure 96/67 L 04/10/25 12:55 Pulse Oximetry 98 04/10/25 12:55 Oxygen Delivery Room Air 04/10/25 12:55 Temperature 97.8 F 04/11/25 04:42 Pulse Rate 81 04/11/25 04:42 Respiratory Rate 20 04/11/25 04:42 Blood Pressure 117/87 04/11/25 04:42 Pulse Oximetry 98 04/11/25 04:42 Oxygen Delivery Room Air 04/10/25 12:55 <Sandeep Castillo MD - Last Filed: 04/11/25 21:51> Vital Signs Temperature 97.2 F L 04/10/25 12:55 Pulse Rate 105 H 04/10/25 12:55 Respiratory Rate 18 04/10/25 12:55 Blood Pressure 96/67 L 04/10/25 12:55 Pulse Oximetry 98 04/10/25 12:55 Oxygen Delivery Room Air 04/10/25 12:55 Temperature 97.8 F 04/11/25 04:42 Pulse Rate 81 04/11/25 04:42 Respiratory Rate 20 04/11/25 04:42 Blood Pressure 117/87 04/11/25 04:42 Pulse Oximetry 98 04/11/25 04:42 Oxygen Delivery Room Air 04/10/25 12:55 <Jack Harmon MD - Last Filed: 04/11/25 03:40> Vital Signs Temperature 97.2 F L 04/10/25 12:55 Pulse Rate 105 H 04/10/25 12:55 Respiratory Rate 18 04/10/25 12:55 Blood Pressure 96/67 L 04/10/25 12:55 Pulse Oximetry 98 04/10/25 12:55 Oxygen Delivery Room Air 04/10/25 12:55 Temperature 97.8 F 04/11/25 04:42 Pulse Rate 81 04/11/25 04:42 Respiratory Rate 20 04/11/25 04:42 Blood Pressure 117/87 04/11/25 04:42 Pulse Oximetry 98 04/11/25 04:42 Oxygen Delivery Room Air 04/10/25 12:55 <Tessa Palomares MD - Last Filed: 04/11/25 09:01> Medical Decision Making MDM Narrative Medical decision making narrative: Patient is currently afebrile with no leukocytosis and a stable hemoglobin. Patient has no acute abnormalities on her CMP UA was negative for infection patient was negative for acetaminophen, salicylates and ethanol. Patient was negative for influenza RSV and for COVID. Patient is medically cleared to be evaluated by crisis. Patient is medically cleared for the transportation and in patient psychiatric treatment as needed. Patient was evaluated by crisis and patient does have documentation signed for involuntary admission. <Sandeep Castillo MD - Last Filed: 04/11/25 21:51> Medical Records Medical records reviewed: Yes I reviewed the external patient's medical records. <Jack Harmon MD - Last Filed: 04/11/25 03:40> Vital Signs Vital Signs: Vital Signs Temperature 97.2 F L 04/10/25 12:55 Pulse Rate 105 H 04/10/25 12:55 Respiratory Rate 18 04/10/25 12:55 Blood Pressure 96/67 L 04/10/25 12:55 Pulse Oximetry 98 04/10/25 12:55 Oxygen Delivery Room Air 04/10/25 12:55 Temperature 97.8 F 04/11/25 04:42 Pulse Rate 81 04/11/25 04:42 Respiratory Rate 20 04/11/25 04:42 Blood Pressure 117/87 04/11/25 04:42 Pulse Oximetry 98 04/11/25 04:42 Oxygen Delivery Room Air 04/10/25 12:55 <Sandeep Castillo MD - Last Filed: 04/11/25 21:51> Vital Signs Temperature 97.2 F L 04/10/25 12:55 Pulse Rate 105 H 04/10/25 12:55 Respiratory Rate 18 04/10/25 12:55 Blood Pressure 96/67 L 04/10/25 12:55 Pulse Oximetry 98 04/10/25 12:55 Oxygen Delivery Room Air 04/10/25 12:55 Temperature 97.8 F 04/11/25 04:42 Pulse Rate 81 04/11/25 04:42 Respiratory Rate 20 04/11/25 04:42 Blood Pressure 117/87 04/11/25 04:42 Pulse Oximetry 98 04/11/25 04:42 Oxygen Delivery Room Air 04/10/25 12:55 <Jack Harmon MD - Last Filed: 04/11/25 03:40> Vital Signs Temperature 97.2 F L 04/10/25 12:55 Pulse Rate 105 H 04/10/25 12:55 Respiratory Rate 18 04/10/25 12:55 Blood Pressure 96/67 L 04/10/25 12:55 Pulse Oximetry 98 04/10/25 12:55 Oxygen Delivery Room Air 04/10/25 12:55 Temperature 97.8 F 04/11/25 04:42 Pulse Rate 81 04/11/25 04:42 Respiratory Rate 20 04/11/25 04:42 Blood Pressure 117/87 04/11/25 04:42 Pulse Oximetry 98 04/11/25 04:42 Oxygen Delivery Room Air 04/10/25 12:55 <Tessa Palomares MD - Last Filed: 04/11/25 09:01> Lab Data Lab results reviewed: Yes I reviewed the patient's lab results. <Jack Harmon MD - Last Filed: 04/11/25 03:40> Result diagrams: 04/10/25 15:20 04/10/25 15:20 <Sandeep Castillo MD - Last Filed: 04/11/25 21:51> Labs: Lab Results 04/10/25 04/10/25 04/10/25 Range/Units 15:20 15:37 15:46 WBC 6.3 (4.5-10.0) K/mm3 RBC 4.45 (4.2-5.4) M/mm3 Hgb 13.2 (12.0-15.0) g/dL Hct 40.0 (37.0-47.0) % MCV 89.9 (80-100) fl MCH 29.7 (26-34) pg MCHC 33.0 (32-36) g/dl RDW 13.8 (11.5-14.5) % Plt Count 279 (150-375) k/mm3 MPV 9.2 (7.4-10.4) fl Immature Gran % (Auto) 0.3 (0-0.5) % Neut % (Auto) 68.0 (45.5-73.1) % Lymph % (Auto) 19.8 (18.3-44.2) % [place] % (Auto) 10.8 H (2.6-8.5) % Eos % (Auto) 0.6 (0-4.4) % Baso % (Auto) 0.5 (0.2-1.2) % Lymph # (Auto) 1.25 (0.9-3.2) K/mm3 [place] # (Auto) 0.7 H (0.1-0.6) K/mm3 Eos # (Auto) 0.0 (0-0.3) K/mm3 Baso # (Auto) 0.0 (0.0-0.1) K/mm3 Abs Immat Gran (auto) 0.02 (0.00-0.031) K/mm3 Absolute Neuts (auto) 4.3 (1.3-6.7) K/mm3 Absolute Nucleated RBC 0.000 (0.0-0.012) K/mm3 Nucleated RBC % 0.0 (0.0-0.2) % Sodium 139 (137-145) mmol/L Potassium 3.5 (3.4-5.0) mmol/L Chloride 104 (98-107) mmol/L Carbon Dioxide 19 L (22-30) mmol/L Anion Gap 16 H (4-12) mmol/L BUN 2 L D (7-17) mg/dL Creatinine 0.71 (0.7-1.0) mg/dL Estim Creat Clear Calc 86 ml/min Estimated GFR > 60 (59 - ) Glucose 81 (65-110) mg/dL Calcium 9.5 (8.4-10.2) mg/dL Total Bilirubin 0.7 (0.2-1.3) mg/dL AST 27 (14-36) U/L ALT 21 (6-35) U/L Alkaline Phosphatase 64 (38-126) U/L Total Protein 7.6 (6.3-8.2) g/dL Albumin 4.4 (3.5-5.1) g/dL TSH (Reflex) 0.644 (0.465-4.68) uIU/mL Urine Color Yellow (Yellow) Urine Appearance Clear (Clear) Urine pH 5.5 (5.0-9.0) Ur Specific [place] 1.005 (1.001-1.035) Urine Protein Negative (Negative) mg/dL Urine Glucose (UA) Negative (Negative) mg/dL Urine Ketones 3+ H (Negative) mg/dL Ur Blood (Man) Negative (Negative) Urine Nitrate Negative (Negative) Urine Bilirubin Negative (Negative) Urine Urobilinogen 0.2 (<2.0) mg/dL Leukocyte Esterase Rfl Negative (Negative) ALEKSANDAR/UL POC Urine HCG, Qual Negative (Negative) Salicylates < 1.0 L (2-20) mg/dL Urine Opiates Screen Negative (Negative) Urine Methadone Screen Negative (Negative) Acetaminophen < 10 L (10-30) ug/mL Ur Barbiturates Screen Negative (Negative) Ur Phencyclidine Scrn Negative (Negative) Ur Amphetamine Screen Negative (Negative) U Benzodiazepines Scrn Negative (Negative) Urine Cocaine Screen Negative (Negative) U Cannabinoids Screen Negative (Negative) Ethyl Alcohol < 10 (<10) mg/dL Influenza A (RT-PCR) Negative (Negative) Influenza B (RT-PCR) Negative (Negative) RSV (RT-PCR) Negative (Negative) SARS-CoV-2 RNA (RT-PCR) Negative (Negative) <Sandeep Castillo MD - Last Filed: 04/11/25 21:51> Lab Results 04/10/25 04/10/25 04/10/25 Range/Units 15:20 15:37 15:46 WBC 6.3 (4.5-10.0) K/mm3 RBC 4.45 (4.2-5.4) M/mm3 Hgb 13.2 (12.0-15.0) g/dL Hct 40.0 (37.0-47.0) % MCV 89.9 (80-100) fl MCH 29.7 (26-34) pg MCHC 33.0 (32-36) g/dl RDW 13.8 (11.5-14.5) % Plt Count 279 (150-375) k/mm3 MPV 9.2 (7.4-10.4) fl Immature Gran % (Auto) 0.3 (0-0.5) % Neut % (Auto) 68.0 (45.5-73.1) % Lymph % (Auto) 19.8 (18.3-44.2) % [place] % (Auto) 10.8 H (2.6-8.5) % Eos % (Auto) 0.6 (0-4.4) % Baso % (Auto) 0.5 (0.2-1.2) % Lymph # (Auto) 1.25 (0.9-3.2) K/mm3 [place] # (Auto) 0.7 H (0.1-0.6) K/mm3 Eos # (Auto) 0.0 (0-0.3) K/mm3 Baso # (Auto) 0.0 (0.0-0.1) K/mm3 Abs Immat Gran (auto) 0.02 (0.00-0.031) K/mm3 Absolute Neuts (auto) 4.3 (1.3-6.7) K/mm3 Absolute Nucleated RBC 0.000 (0.0-0.012) K/mm3 Nucleated RBC % 0.0 (0.0-0.2) % Sodium 139 (137-145) mmol/L Potassium 3.5 (3.4-5.0) mmol/L Chloride 104 (98-107) mmol/L Carbon Dioxide 19 L (22-30) mmol/L Anion Gap 16 H (4-12) mmol/L BUN 2 L D (7-17) mg/dL Creatinine 0.71 (0.7-1.0) mg/dL Estim Creat Clear Calc 86 ml/min Estimated GFR > 60 (59 - ) Glucose 81 (65-110) mg/dL Calcium 9.5 (8.4-10.2) mg/dL Total Bilirubin 0.7 (0.2-1.3) mg/dL AST 27 (14-36) U/L ALT 21 (6-35) U/L Alkaline Phosphatase 64 (38-126) U/L Total Protein 7.6 (6.3-8.2) g/dL Albumin 4.4 (3.5-5.1) g/dL TSH (Reflex) 0.644 (0.465-4.68) uIU/mL Urine Color Yellow (Yellow) Urine Appearance Clear (Clear) Urine pH 5.5 (5.0-9.0) Ur Specific [place] 1.005 (1.001-1.035) Urine Protein Negative (Negative) mg/dL Urine Glucose (UA) Negative (Negative) mg/dL Urine Ketones 3+ H (Negative) mg/dL Ur Blood (Man) Negative (Negative) Urine Nitrate Negative (Negative) Urine Bilirubin Negative (Negative) Urine Urobilinogen 0.2 (<2.0) mg/dL Leukocyte Esterase Rfl Negative (Negative) ALEKSANDAR/UL POC Urine HCG, Qual Negative (Negative) Salicylates < 1.0 L (2-20) mg/dL Urine Opiates Screen Negative (Negative) Urine Methadone Screen Negative (Negative) Acetaminophen < 10 L (10-30) ug/mL Ur Barbiturates Screen Negative (Negative) Ur Phencyclidine Scrn Negative (Negative) Ur Amphetamine Screen Negative (Negative) U Benzodiazepines Scrn Negative (Negative) Urine Cocaine Screen Negative (Negative) U Cannabinoids Screen Negative (Negative) Ethyl Alcohol < 10 (<10) mg/dL Influenza A (RT-PCR) Negative (Negative) Influenza B (RT-PCR) Negative (Negative) RSV (RT-PCR) Negative (Negative) SARS-CoV-2 RNA (RT-PCR) Negative (Negative) <Jack Harmon MD - Last Filed: 04/11/25 03:40> Lab Results 04/10/25 04/10/25 04/10/25 Range/Units 15:20 15:37 15:46 WBC 6.3 (4.5-10.0) K/mm3 RBC 4.45 (4.2-5.4) M/mm3 Hgb 13.2 (12.0-15.0) g/dL Hct 40.0 (37.0-47.0) % MCV 89.9 (80-100) fl MCH 29.7 (26-34) pg MCHC 33.0 (32-36) g/dl RDW 13.8 (11.5-14.5) % Plt Count 279 (150-375) k/mm3 MPV 9.2 (7.4-10.4) fl Immature Gran % (Auto) 0.3 (0-0.5) % Neut % (Auto) 68.0 (45.5-73.1) % Lymph % (Auto) 19.8 (18.3-44.2) % [place] % (Auto) 10.8 H (2.6-8.5) % Eos % (Auto) 0.6 (0-4.4) % Baso % (Auto) 0.5 (0.2-1.2) % Lymph # (Auto) 1.25 (0.9-3.2) K/mm3 [place] # (Auto) 0.7 H (0.1-0.6) K/mm3 Eos # (Auto) 0.0 (0-0.3) K/mm3 Baso # (Auto) 0.0 (0.0-0.1) K/mm3 Abs Immat Gran (auto) 0.02 (0.00-0.031) K/mm3 Absolute Neuts (auto) 4.3 (1.3-6.7) K/mm3 Absolute Nucleated RBC 0.000 (0.0-0.012) K/mm3 Nucleated RBC % 0.0 (0.0-0.2) % Sodium 139 (137-145) mmol/L Potassium 3.5 (3.4-5.0) mmol/L Chloride 104 (98-107) mmol/L Carbon Dioxide 19 L (22-30) mmol/L Anion Gap 16 H (4-12) mmol/L BUN 2 L D (7-17) mg/dL Creatinine 0.71 (0.7-1.0) mg/dL Estim Creat Clear Calc 86 ml/min Estimated GFR > 60 (59 - ) Glucose 81 (65-110) mg/dL Calcium 9.5 (8.4-10.2) mg/dL Total Bilirubin 0.7 (0.2-1.3) mg/dL AST 27 (14-36) U/L ALT 21 (6-35) U/L Alkaline Phosphatase 64 (38-126) U/L Total Protein 7.6 (6.3-8.2) g/dL Albumin 4.4 (3.5-5.1) g/dL TSH (Reflex) 0.644 (0.465-4.68) uIU/mL Urine Color Yellow (Yellow) Urine Appearance Clear (Clear) Urine pH 5.5 (5.0-9.0) Ur Specific [place] 1.005 (1.001-1.035) Urine Protein Negative (Negative) mg/dL Urine Glucose (UA) Negative (Negative) mg/dL Urine Ketones 3+ H (Negative) mg/dL Ur Blood (Man) Negative (Negative) Urine Nitrate Negative (Negative) Urine Bilirubin Negative (Negative) Urine Urobilinogen 0.2 (<2.0) mg/dL Leukocyte Esterase Rfl Negative (Negative) ALEKSANDAR/UL POC Urine HCG, Qual Negative (Negative) Salicylates < 1.0 L (2-20) mg/dL Urine Opiates Screen Negative (Negative) Urine Methadone Screen Negative (Negative) Acetaminophen < 10 L (10-30) ug/mL Ur Barbiturates Screen Negative (Negative) Ur Phencyclidine Scrn Negative (Negative) Ur Amphetamine Screen Negative (Negative) U Benzodiazepines Scrn Negative (Negative) Urine Cocaine Screen Negative (Negative) U Cannabinoids Screen Negative (Negative) Ethyl Alcohol < 10 (<10) mg/dL Influenza A (RT-PCR) Negative (Negative) Influenza B (RT-PCR) Negative (Negative) RSV (RT-PCR) Negative (Negative) SARS-CoV-2 RNA (RT-PCR) Negative (Negative) <Tessa Palomares MD - Last Filed: 04/11/25 09:01> Discharge Plan Discharge Clinical Impression: Schizophrenia, Psychosis <Sandeep Castillo MD - Last Filed: 04/11/25 21:51> Patient Disposition: Psychiatric Hosp <Sandeep Castillo MD - Last Filed: 04/11/25 21:51> Condition: Stable <Sandeep Castillo MD - Last Filed: 04/11/25 21:51> Patient Language: Azeri <Sandeep Castillo MD - Last Filed: 04/11/25 21:51> Prescriptions: No Action venlafaxine 150 mg Capsule,Extended Release 24hr 300 mg PO DAILY zolpidem 5 mg Tablet 10 mg PO HS PRN (Reason: Insomnia) alprazolam 2 mg Tablet 2 mg PO TID PRN (Reason: Anxiety) zolpidem 5 mg tablet 5 mg PO HS PRN (Reason: insomnia) Qty: 20 0RF olanzapine [Zyprexa] 5 mg tablet 5 mg PO HS Qty: 20 0RF cephalexin 500 mg capsule 500 mg PO Q12H Qty: 14 0RF sumatriptan succinate [Imitrex] 50 mg tablet 50 mg PO BID PRN (Reason: migraine headache) Qty: 20 0RF cephalexin 500 mg capsule 500 mg PO Q8H Qty: 30 0RF gabapentin 400 mg capsule 400 mg PO DAILY clonazepam 2 mg tablet 2 mg PO TID PRN (Reason: Anxiety) haloperidol 5 mg tablet 5 mg PO BID venlafaxine 75 mg tablet 75 mg PO DAILY benztropine 2 mg tablet 1 mg PO BID lurasidone 60 mg tablet 60 mg PO HS <Sandeep Castillo MD - Last Filed: 04/11/25 21:51> Follow-up/Referrals: Malbe,JOYA Iqbal [Primary Care Provider] - <Sandeep Castillo MD - Last Filed: 04/11/25 21:51>
--- OUTSIDE RECORDS SUMMARY | 2025-04-10 13:37 | XMS_ITS | Clinical Summary ---
Author Organization [facility] Address [address] [place] [address] Care Team Providers Care Customer Specialist Name Role Phone Lam Akins Primary Care Provider [phone] Allergies No known active allergies Medications DULoxetine [...] (two) times a day Collaborating physician Ricco Falrey MD 5 tablet 3 Active prochlorperazi ne [...] on file Legal Sex Female 3:01 PM [employer] Gender Identity Not on file Sexual Orientation [...] age to complete this topic Insurance IDPA [facility] IDAL Care Teams Customer Specialist Relationship Specialty Start Date End Date Lam Akins PA [address] [place] [address] PCP - General Family Practice 10/15/23
--- OUTSIDE RECORDS SUMMARY | 2025-04-10 13:37 | XMS_ITS ---
Author Organization [facility] Address [address] [place] [address] Phone Care Team Providers Care Voyage Management System Operator Name Role Phone Paloma Li MD Primary Care Provider [phone] [facility] Status:Enrolled (Active) Start date:10/20/2024 Enrollment date:10/20/2024 Related social drivers of health:Intimate Partner Violence, Social Connections, Alcohol Use, Financial Resource Strain, Depression, Stress, Physical Activity, Food Insecurity, Transportation Needs, Housing Stability, Utilities Continued Care and Services Coordination
--- OUTSIDE RECORDS SUMMARY | 2025-04-10 13:37 | XMS_ITS | Clinical Summary ---
Author Organization [facility] Address [address] [place] [address] Phone Care Team Providers Care Safety Deposit Boxes Custodian Name Role Phone Paloma Li MD Primary Care Provider [phone] Allergies No known active allergies Medications clonazePAM [...] Sex Assigned at Female 08/31/2023 5:01 AM RECLAIMER Legal Sex Female 11:09 PM CDT Gender Identity Female 08/31/2023 5:01 AM RECLAIMER Sexual Orientation Not on file Last Filed Vital Signs Vital Sign Reading Time Taken Comments Blood Pressure 100/67 11/26/2023 7:00 AM RECLAIMER Pulse 84 11/26/2023 7:15 AM RECLAIMER Temperature 36 C (96.8 F) 11/26/2023 6:38 AM RECLAIMER Respiratory Rate 16 11/26/2023 8:28 AM RECLAIMER Oxygen Saturation 100% 11/26/2023 7:15 AM RECLAIMER Inhaled Oxygen Concentration - - Weight 61.2 kg (135 lb) 11/26/2023 6:38 AM RECLAIMER Height 172.7 cm (5' 8) 11/26/2023 6:38 AM RECLAIMER Body Mass Index 20.53 11/26/2023 6:38 AM RECLAIMER Plan of Treatment Health Maintenance Due Date [...] Insurance MEDICAID [employer] Care Teams Safety Deposit Boxes Custodian Relationship Specialty Start Date End Date Paloma Li MD [address] [place] [address] PCP - General Internal Medicine 08/18/23
--- OUTSIDE RECORDS SUMMARY | 2025-04-10 13:37 | XMS_ITS | Clinical Summary ---
Author Organization [facility] Address [address] [place] [address] Care Team Providers Care Veterans Services Specialist Name Role Phone Unavailable Primary Care Provider Unavailabl e Source Comments [facility],non-owned Affiliates and Associated Physician Practices is amultiple site organization consisting of ambulatory clinics and hospital sitesin [place], [place], [place] and [place]. This disclosure is being madepursuant to the Care Everywhere program and may not contain all information available regarding this patient. Last updated 18.[facility] Allergies No known active allergies Medications * [...] CDT - 02/12/2025 2:34 PM CDT Emergency [facility] EMERGENCY DEPARTMENT [address] [place] [address] Maximo Harrison MD Kraemer, Carl M, MD [...] and heating? Not hard at all 03/12/2023 [facility] [place] [facility] Occupat ional Health - Occupational Stress [...] place to sleep or slept in a intermediate (including now)? 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 Gender Identity Not on file Sexual Orientation [...] Yellow Yellow, Straw 02/12/2025 2:14 PM CDT [facility] Clarity UA Turbid(A) Clear 02/12/2025 2:14 PM CDT [facility] Glucose UA Normal Normal 02/12/2025 2:14 PM CDT [facility] Bilirubin UA Negative Negative 02/12/2025 2:14 PM CDT [facility] Ketone UA 1+(A) Negative 02/12/2025 2:14 PM CDT [facility] Specific [place] UA 1.020 1.005 - 1.030 02/12/2025 2:14 PM CDT [facility] Blood UA Negative Negative 02/12/2025 2:14 PM CDT [facility] pH UA 6.0 5.0 - 8.0 pH 02/12/2025 2:14 PM CDT [facility] Protein UA Negative Negative 02/12/2025 2:14 PM CDT [facility] Urobilinogen UA Normal Normal mg/dL 02/12/2025 2:14 PM CDT [facility] Nitrite UA Negative Negative 02/12/2025 2:14 PM CDT [facility] Leukocyte Esterase UA Negative Negative 02/12/2025 2:14 PM CDT [facility] Reflex Status Culture not indicated 02/12/2025 2:14 PM CDT [facility] Urine URINE SPECIMEN OBTAINED BY CLEAN CATCH PROCEDURE / Unknown Collection / Unknown 02/12/2025 1:58 PM CDT 02/12/2025 2:09 PM CDT us Christina Hurt RESPIRATORY [facility]PER[facility] - URINALYSIS ORD ERABLES Final Result [facility] [address] [place] [id number], [facility] [phone] * CBC W AUTO DIFFERENTIAL (02/12/2025 1:02 PM CDT) [facility] WBC 5.7 4.0 - 10.7 x10E9/L 02/12/2025 1:14 PM [facility] RBC Count 5.19 3.90 - 5.20 x10E12/L 02/12/2025 1:14 PM [facility] Hemoglobin 15.4 11.9 - 15.8 g/dL 02/12/2025 1:14 PM [facility] Hematocrit 45.0 34.8 - 46.1 % 02/12/2025 1:14 PM [facility] MCV 86.7 80.0 - 98.0 fL 02/12/2025 1:14 PM [facility] MCH 29.7 26.7 - 33.6 pg 02/12/2025 1:14 PM [facility] MCHC 34.2 31.7 - 36.3 g/dL 02/12/2025 1:14 PM [facility] RDW-CV 12.1 11.3 - 14.8 % 02/12/2025 1:14 PM [facility] Platelet Count 232 150 - 420 x10E9/L 02/12/2025 1:14 PM [facility] MPV 9.9 7.8 - 11.4 fL 02/12/2025 1:14 PM [facility] Neutrophil % 61.2 41.0 - 74.0 % 02/12/2025 1:14 PM [facility] Lymphocyte % 27.4 17.0 - 47.0 % 02/12/2025 1:14 PM [facility] Monocyte % 8.4 3.0 - 11.0 % 02/12/2025 1:14 PM [facility] Eosinophil % 2.3 0.0 - 7.0 % 02/12/2025 1:14 PM [facility] Basophil % 0.5 0.0 - 1.6 % 02/12/2025 1:14 PM [facility] Immature Granulocytes % 0.2 0.0 - 1.0 % 02/12/2025 1:14 PM [facility] Neutrophil Absolute 3.49 1.60 - 7.50 x10E9/L 02/12/2025 1:14 PM [facility] Lymphocyte Absolute 1.56 1.00 - 4.40 x10E9/L 02/12/2025 1:14 PM [facility] Monocyte Absolute 0.48 0.15 - 1.00 x10E9/L 02/12/2025 1:14 PM [facility] Eosinophil Absolute 0.13 0.00 - 0.60 x10E9/L 02/12/2025 1:14 PM [facility] Basophil Absolute 0.03 0.00 - 0.13 x10E9/L 02/12/2025 1:14 PM [facility] Blood BLOOD SPECIMEN / Unknown Venipuncture / Unknown 02/12/2025 1:02 PM CDT 02/12/2025 1:09 PM CDT us Christina Hurt RESPIRATORY SUPER[facility] - HEMATOLOGY ORD ERABLES Final Result [facility] [address] [place] [address], [facility] [phone] * (ABNORMAL) COMPREHENSIVE METABOLIC PANEL (02/12/2025 1:02 PM CDT) BUN 6(L) 7 - 26 mg/dL 02/12/2025 1:42 PM [facility] Creatinine 0.76 0.56 - 0.96 mg/dL 02/12/2025 1:42 PM [facility] Sodium 137 136 - 145 mmol/L 02/12/2025 1:42 PM [facility] Potassium 4.3 3.5 - 4.5 mmol/L 02/12/2025 1:42 PM [facility] Chloride 106 98 - 107 mmol/L 02/12/2025 1:42 PM [facility] CO2 24 22 - 29 mmol/L 02/12/2025 1:42 PM [facility] Glucose 85 70 - 99 mg/dL 02/12/2025 1:42 PM [facility] Calcium 9.5 8.4 - 10.2 mg/dL 02/12/2025 1:42 PM [facility] Protein Total 7.0 6.0 - 8.3 g/dL 02/12/2025 1:42 PM [facility] Albumin 4.1 3.4 - 5.0 g/dL 02/12/2025 1:42 PM [facility] Bilirubin Total 0.7 0.2 - 1.2 mg/dL 02/12/2025 1:42 PM [facility] Alkaline Phosphatase 70 40 - 150 U/L 02/12/2025 1:42 PM [facility] ALT 12 5 - 55 U/L 02/12/2025 1:42 PM [facility] AST 13 5 - 34 U/L 02/12/2025 1:42 PM [facility] Anion Gap 7 6 - 16 02/12/2025 1:42 PM [facility] BUN/Creatinine Ratio 8 7 - 23 02/12/2025 1:42 PM [facility] Osmolality Calculated 281 275 - 295 mOsm/kg 02/12/2025 1:42 PM [facility] Albumin/Globulin Ratio 1.4 1.1 - 2.3 02/12/2025 1:42 PM [facility] eGFR by CKD-EPI >90 >=90 mL/min/1.7 3 m2 02/12/2025 1:42 PM [facility] Blood BLOOD SPECIMEN / Unknown Venipuncture / Unknown 02/12/2025 1:02 PM CDT 02/12/2025 1:09 PM [facility] us Christina Hurt RESPIRATORY SUPERVISOR[facility] - CHEMISTRY ORDE GAVIN Final Result [facility] [address] [place] [id number], [facility] [phone] * HCG BETA BLOOD QUANTITATIVE (02/12/2025 1:02 PM CDT) Beta-hCG Total Quantitative <3 mIU/mL 02/12/2025 1:52 PM [facility] Comment: HCG Numeric Result Interpretation: Non- [...] CDT 02/12/2025 1:09 PM CDT Christina Hurt RESPIRATORY SUPERVISOR-[facility] - CHEMISTRY ROSSANA ALONSO Final Result [address] [address], [facility] [phone] * HIV-1 HIV-2 ANTIBODY + HIV P24 AG PANEL (03/12/2023 8:49 AM CDT) [facility] HIV1/2 Ab + P24 Ag Non Reactive Non Reactive 03/12/2023 9:34 AM CDT [facility] Blood BLOOD SPECIMEN / Unknown Venipuncture / Unknown 03/12/2023 8:49 AM CDT 03/12/2023 8:49 AM CDT Narrative [facility] - 03/12/2023 9:34 AM CDT No Laboratory evidence of HIV infection. Vianney Pena MD LAB - CHEMISTRY ORDERABLE S Final Result [facility] [address] [place] [address] from Last 3 Months or Most Recently Relevant to Health Maintenance [place] [address] [place] MEDICA[place] - [facility] Advance Directives * Full Code (Latest Code Status on File) Date Activated Date Inactivated Comments 03/12/2023 7:14 PM 03/18/2023 1:13 PM
--- OUTSIDE RECORDS SUMMARY | 2025-04-10 13:37 | XMS_ITS | Referral Summary ---
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
--- NOTE | 2025-04-10 14:18 | PC.NURSE ---
Pt in room on stretcher, cooperative, fearful. Pt declined labs/ua at this time, requesting can I just sit here for 5 mins? Pt declining labs currently. Will reevaluate. Offered pt water, pt is disoriented and not wanting anything at this time.
[2025-04-10 15:26] LABS: Hematocrit 40.0 % (37.0-47.0); Hemoglobin 13.2 g/dL (12.0-15.0); Immature Granulocyte Percent A 0.3 % (0-0.5); Lymphocytes Absolute Auto 1.25 K/mm3 (0.9-3.2); Mean Corpuscular HGB Conc 33.0 g/dl (32-36); Mean Corpuscular Hemoglobin 29.7 pg (26-34); Mean Corpuscular Volume 89.9 fl (80-100); Nucleated Red Blood Cells Absolute Auto 0.000 K/mm3 (0.0-0.012); Nucleated Red Blood Cells Perc 0.0 % (0.0-0.2); Platelet Count Result 279 k/mm3 (150-375); Red Blood Count 4.45 M/mm3 (4.2-5.4); White Blood Count 6.3 K/mm3 (4.5-10.0)
[2025-04-10 15:37] LABS: Acetaminophen < 10 ug/mL (10-30); Salicylate < 1.0 mg/dL (2-20)
[2025-04-10] MEDS: clonazePAM (*CRX) 0.5 MG TABLET 2 MG PO (15:38)
[2025-04-10 15:39] LABS: Alanine Aminotransferase 21 U/L (6-35); Albumin Level 4.4 g/dL (3.5-5.1); Alkaline Phosphatase 64 U/L (38-126); Anion Gap 16 mmol/L (4-12); Aspartate Amino Transferase 27 U/L (14-36); Bilirubin,Total 0.7 mg/dL (0.2-1.3); Blood Urea Nitrogen 2 mg/dL (7-17); Calcium 9.5 mg/dL (8.4-10.2); Carbon Dioxide 19 mmol/L (22-30); Chloride 104 mmol/L (98-107); Estimated CRCL calculation 86 ml/min; Estimated Glomerular Filt Rate > 60; Glucose 81 mg/dL (65-110); Potassium 3.5 mmol/L (3.4-5.0); Sodium 139 mmol/L (137-145); Total Protein 7.6 g/dL (6.3-8.2)
[2025-04-10 15:47] LABS: BEDSIDEPREGUCG Negative (Negative)
[2025-04-10 15:49] LABS: Add Urine Microscopic? NO; Appearance Urine Clear (Clear); Glucose Urine UA Negative (Negative); Leukocyte Esterase Ur Negative LEU/UL (Negative); Nitrate Urine Negative (Negative); Specific Grav Ur 1.005 (1.001-1.035)
[2025-04-10 16:02] LABS: Influenza A QL RT-PCR Negative (Negative); Influenza B QL RT-PCR Negative (Negative); RSV RNA, RT-PCR Negative (Negative); SARS-CoV-2 RNA PCR Negative (Negative)
[2025-04-10 16:11] LABS: Cannabinoid Screen Urine Negative (Negative)
[2025-04-10 16:14] LABS: Thyroid Stimulating Hormone Reflex 0.644 uIU/mL (0.465-4.68)
[2025-04-10 18:28] VITALS: BP 116/72; PULSE 111; RESP 16; O2SAT 100
--- NOTE | 2025-04-10 18:49 | PC.NURSE ---
Per Behavioral Health, chart was faxed to [place], [facility], and [facility].
[2025-04-10 21:16] VITALS: BP 107/54; PULSE 108; RESP 22; TEMP 36.5; O2SAT 98
[2025-04-11 00:46] VITALS: BP 138/59; PULSE 91; RESP 18; TEMP 37; O2SAT 97
[2025-04-11 02:03] VITALS: BP 132/74; PULSE 87; RESP 18; TEMP 36.4; O2SAT 99
[2025-04-11 04:42] VITALS: BP 117/87; PULSE 81; RESP 20; TEMP 36.6; O2SAT 98
--- NOTE | 2025-04-11 06:33 | PC.NURSE ---
patient attempted to run out of the ER doors multiple times even after redirection. Security called and a sitter is placed at bedside. Zyprexa given to pt PO.
== END 2025-04-11 09:03 ==
PROVIDERS: Emergency Provider Emergency Medicine; PCP Physician Assistant
DX: F20.9 Schizophrenia, unspecified (principal); F29 Unspecified psychosis not due to a substance or known physiological condition; Z11.52 Encounter for screening for COVID-19; Z79.899 Other long term (current) drug therapy
CPT/HCPCS: 36415; 80053; 80143; 80179; 80307; 81003; 81025; 82077; 84443; 85025; 87637; 99285; A9270